=== PATIENT | male | born 1955 | race Caucasian/White ===

== ENCOUNTER 2016-10-16 19:29 | Inpatient (IN) | payer OTHER ==
[~2016-10-16] VITALS: Ht 185.4 cm; Wt 110.7 kg
--- NOTE | 2016-10-16 19:34 | ED AMS/SEIZURE/WEAK/DIZZY ---
History of Present Illness General Chief Complaint: Altered Mental Status Stated Complaint: AMS Source: patient, family, EMS Exam Limitations: clinical condition Vital Signs & Intake/Output Vital Signs & Intake/Output Vital Signs Date Time Temp Pulse Resp B/P Pulse O2 O2 Flow FiO2 Ox Delivery Rate 10/16 2228 99.6 90 18 151/78 96 Room Air Room Air 10/16 2150 98.3 90 18 149/76 99 Room Air 10/16 2005 97 Room Air Room Air 10/16 2000 89 18 159/77 97 Room Air Room Air 10/16 1946 97.4 90 18 197/97 95 Room Air Room Air Allergies Coded Allergies: No Known Allergies (10/16/16) Reconcile Medications Aspirin (Ecotrin*) 81 MG TABLET.DR 1 TAB PO DAILY BLOOD THINNER (Reported) Atorvastatin Calcium 10 MG TABLET 1 TAB PO DAILY HLP (Reported) Insulin Glargine,Hum.rec.anlog (Lantus Solostar) 100 UNIT/ML (3 ML) INSULN.PEN 50 UNIT SC QPM DM (Reported) Insulin Lispro (Humalog) 100 UNIT/ML VIAL 20 U SC Q8 DM (Reported) Metoprolol Tartrate 50 MG TABLET 1 TAB PO BID HTN (Reported) Ramipril 2.5 MG CAPSULE 1 CAP PO DAILY HTN (Reported) Warfarin Sodium (Coumadin) (Unknown Strength) TABLET (Unknown Dose) PO AD BLOOD THINNER (Reported) Triage Nurses Notes Reviewed? yes Onset: unknown Duration: hour(s): Timing: recent history Injury Environment: home Severity: moderate Modifying Factors: Improves With: rest. Associated Symptoms: confusion HPI: 60-year-old gentleman history of an aortic valve replacement on Coumadin, presents with confusion. Per the medics his family have been trying to reach him by cell phone throughout the day. He did not respond. However in the evening he sent a text that was nonsensical. They called 911. They found him confused with difficulty ambulating. Upon further questioning with the family the last normal text was around noon. There is no history of trauma. Past History Travel History Traveled to [place] past 21 day No Medical History Any Pertinent Medical History? see below for history Cardiovascular: aortic valve replacement Surgical History Surgical History: aortic valve replacement Family History Hx Contributory? No Review of Systems Review of Systems Constitutional: Reports: no symptoms. EENTM: Reports: no symptoms. Respiratory: Reports: no symptoms. Cardiovascular: Reports: no symptoms. GI: Reports: no symptoms. Genitourinary: Reports: no symptoms. Musculoskeletal: Reports: no symptoms. Skin: Reports: no symptoms. Neurological/Psychological: Reports: no symptoms. Hematologic/Endocrine: Reports: no symptoms. Immunologic/Allergic: Reports: no symptoms. All Other Systems: Reviewed and Negative Physical Exam Physical Exam General Appearance: well developed/nourished, mild distress Head: atraumatic, normal appearance Eyes: Bilateral: normal appearance, PERRL, other (left-sided neglect). Ears, Nose, Throat: normal pharynx Neck: normal inspection, supple, full range of motion Respiratory: normal breath sounds Cardiovascular: regular rate/rhythm Gastrointestinal: normal bowel sounds, soft, non-tender, no organomegaly Back: normal inspection Extremities: normal range of motion Neurologic/Psych: alert and oriented x 3 but with sluggish responsiveness. the extraocular movements are largely intact but they do not cross the midline from right to left. He also appears to have a left-sided neglect. He does not spontaneously move his left arm. However when I asked to squeeze he is able to squeeze his hand but with slightly diminished strength 4 out of 5. Right arm is normal 5 out of 5. Bilateral lower extremities are symmetric and normal. Reflexes: 0: bicep (L), knee (L). 1+: bicep (R), knee (R). Skin: intact, normal color, warm/dry Comments: pt failed swallow evaluation Core Measures ACS in differential dx? No CVA/TIA Diagnosis: Yes NIH Stroke Scale: Total 4 Neurological S/S of CVA: Acute Confusion Severe Sepsis Present: No Septic Shock Present: No Progress Differential Diagnosis: arrythmia, benign positional vertigo, CVA/stroke, electrolyte imbalance Plan of Care: Orders Procedure Date/time Status Nothing by Mouth 10/17 B Active [id number] DOPPLER 10/17 599 Active PROTHROMBIN TIME 10/17 599 Active WESTERGREN SED RATE 10/17 599 Active CBC WITHOUT DIFFERENTIAL 10/17 599 Active BASIC ELECTROLYTES PLUS BUN&CR 10/17 599 Active Add-on Test (ER Only) 10/16 230 Active RAPID PLASMA REAGIN 10/16 2221 Active ECHOCARDIOGRAM 10/16 2219 Active Pathway - chart 10/16 2200 Active House Staff 10/16 2200 Active Code Status 10/16 2200 Active Saline Lock 10/16 2044 Active Misc Message 10/16 2044 Active ED Holding Orders 10/16 2044 Active Admit to inpatient 10/16 2044 Active Vital Signs 10/16 2044 Active Code Status 10/16 2044 Complete Patient Data 10/16 2040 Active Intake & Output 10/16 2004 Active CARBON MONOXIDE LEVEL (GEN) 10/16 1956 Active ARTERIAL BLOOD GAS (GEN) 10/16 1956 Active THYROID STIMULATING HORMONE 10/16 1934 Complete FREE T4 10/16 1934 Complete ETHANOL 10/16 1934 Complete URINE DRUG SCREEN FOR ER ONLY 10/16 1931 Complete URINALYSIS 10/16 1931 Complete PARTIAL THROMBOPLASTIN TIME 10/16 1930 Complete PROTHROMBIN TIME 10/16 1930 Complete HEPATIC FUNCTION PANEL 10/16 1930 Complete CBC WITHOUT DIFFERENTIAL 10/16 1930 Complete BASIC METABOLIC PANEL 10/16 1930 Complete EKG 10/16 1930 Active PT Evaluate & Treat 10/16 UNK Active VTE Mechanical Prophylaxis 10/16 UNK Active Vital Signs 10/16 UNK Active Precautions 10/16 UNK Active NIH Stroke Scale 10/16 UNK Active [place] Coma Scale 10/16 UNK Active MRI-HEAD W/O JO 10/16 UNK Active Current Medications Sig/Suzan Start time Last Medication Dose Stop Time Status Admin Aspirin 325 MG ONCE ONE 10/16 2029 CAN (Aspirin) 10/16 2030 Laboratory Tests 10/16/16 222: TSH Cancelled, Free T4 Cancelled, CBC w Diff Cancelled, WBC Cancelled, RBC Cancelled, Hgb Cancelled, Hct Cancelled, MCV Cancelled, MCH Cancelled, RDW Cancelled, Plt Count Cancelled, MPV Cancelled, PUBS MCHC Cancelled 10/16/16 2015: pH 7.46 H, pCO2 32 L, pO2 87, HCO3 22, ABG O2 Sat (Measured) 96.0, P-50 (Temp Corrected) Y, Oxyhemoglobin Pending, Carboxyhemoglobin 1.0 L, Methemoglobin Pending, Calc Total Hemoglobin 14, Oxygen Content Pending, O2 Concentration % RM /AIR, Temperature 97.0, O2 Delivery Method RA, Phlebotomy Draw Site RIGHT RADIAL 10/16/161953: Urine Opiates Screen < 100.00, Methadone Screen < 40, Barbiturate Screen < 60, Ur Phencyclidine Scrn < 6.00, Amphetamines Screen < 100, U Benzodiazepines Scrn < 85, Urine Cocaine Screen < 50, Urine Cannabis Screen > 80.00 H, Urine Color YEL, Urine Clarity CLEAR, Urine pH 6.0, Ur Specific [place] 1.025, Urine Protein TRACE H, Urine Ketones 40 H, Urine Nitrite NEG, Urine Bilirubin NEG, Urine Urobilinogen 0.2, Ur Leukocyte Esterase NEG, Ur Microscopic SEDIMENT EXAMINED, Urine RBC 1-3, Urine WBC RARE, Ur Epithelial Cells FEW, Urine Hemoglobin TRACE- LYSED H, Urine Glucose >=1000 H 10/16/161934: Anion Gap 13, Estimated GFR > 60, BUN/Creatinine Ratio 18.3, Glucose 343 H, Calcium 9.5, Total Bilirubin 0.9, Direct Bilirubin 0.6 H, AST 31, ALT 40, Alkaline Phosphatase 116, Total Protein 7.6, Albumin 4.4, TSH 2.010, Free T4 1.92 H, PT 12.4, INR 1.18 H, APTT 30, CBC w Diff NO MAN DIFF REQ, RBC 4.19 L, MCV 97.3 H, MCH 33.4 H, RDW 13.1, MPV 7.6, Gran % 71.4, Lymphocytes % 18.0 L, Monocytes % 9.2, Eosinophils % 1.1, Basophils % 0.3, Absolute Granulocytes 6.5, Absolute Lymphocytes 1.6, Absolute Monocytes 0.8 H, Absolute Eosinophils 0.1, Absolute Basophils 0, PUBS MCHC 34.3, RPR Titer/FTA Pending, Serum Alcohol < 10.0 10/16/161931: Serum Alcohol Cancelled Diagnostic Imaging: Viewed by Me: Radiology Read, CT Scan. Discussed w/RAD: Radiology Read, CT Scan. Radiology Impression: head CT - right temporal lobe ischemic area, full report blow. CXR Impression: no acute abnormality, no infiltrates, normal size heart, normal mediastinum, hypoexpanded Initial ED EKG: normal axis, normal intervals, normal p-waves, normal QRS complex, normal sinus rhythm Comments: PATIENT: CITLALI VALLADARES PRESENT AGE: 57 PATIENT ACCOUNT NO: [id number] : [birth year] LOCATION: [facility] ORDERING PHYSICIAN: AKIRA HILL MD SERVICE DATE: 10/16/16 EXAM TYPE: CAT - CT CERV SPINE WO IV CONTRAST; CT HEAD WO IV CONTRAST EXAMINATION: CT HEAD WITHOUT CONTRAST CT CERVICAL SPINE WITHOUT CONTRAST. CLINICAL INFORMATION: Mental status change COMPARISON: None TECHNIQUE: Contiguous axial imaging was performed from the vertex to the upper thorax without intravenous administration of contrast. DLP: 1533.95 mGy-cm FINDINGS: HEAD: There is no acute intracranial hemorrhage. There is loss of chandler-white matter differentiation in the right temporal lobe, better seen on axial image 15/32 of series 2. A 10 mm old lacunar infarct also seen in the same region. There is no midline shift or sign of transtentorial herniation. No extra-axial fluid collection. The ventricles are normal in size. The osseous structures and soft tissues are normal. The mastoid air cells and visualized portions of the paranasal sinuses are well aerated. CERVICAL SPINE: Presence of motion artifact limits evaluation of this exam. The vertebral body height and alignment of the cervical spine are within normal limits. The C1-C2, craniocervical and cervicothoracic anastomosis are unremarkable. There is narrowing of C5-C6, C6-C7 and C7-T1 intervertebral disc spaces. The posterior elements are intact. Degenerative changes of uncovertebral joints also seen. There is no acute fracture or dislocation of cervical spine. The paraspinal soft tissue and the visualized lung apices are unremarkable. IMPRESSION: 1. Loss of chandler-white matter differentiation in the right temporal lobe, suggests acute ischemia/stroke in the right MCA territory. There is no acute intracranial hemorrhage. No midline shift. 2. Degenerative disc disease of lower cervical spine. No acute cervical spine fracture or dislocation. Findings were discussed with Dr. Akira Hill at 758 on 10/16/2016 by myself. DICTATED BY: HUY LONGO MD DATE/TIME DICTATED:10/16/161953 LUSTER REPAIRER:BRENDA DATE/TIME TRANSCRIBED:10/16/161953 CONFIDENTIAL, DO NOT COPY WITHOUT APPROPRIATE AUTHORIZATION. <Electronically signed in Other Vendor System> SIGNED BY: HUY LONGO MD 10/16/162010 Departure Departure Disposition: STILL A PATIENT Condition: Stable Clinical Impression Primary Impression: CVA (cerebral vascular accident) Departure Forms: Customer Survey General Discharge Information Comments 10/16/16, 21:00.... discussed with patient's family.... they are uncertain when his symptoms began. ...discussed with radiology who conveyed head ct results... discussed with neurology who affirms plan for aspirin... pt to be admitted to [facility]. discussed with neuro who will see patient in the AM. Admission Note Spoke With: CAMMIE MARTIN,[facility] Documentation of Exam: Documentation of any treatments & extenuating circumstances including Concerns Regarding Discharge (functional status, medication knowledge or non-compliance, living conditions, etc.) that warrant an admission rather than observation: pt with ischemic stroke, failed swallow evaluation, uncertain time when it began. Pt merits admission, neuro evaluation. discussed with neurology and radiology. Critical Care Note Critical Care Note Critical Care Time: 30-74 min
[2016-10-16] MEDS ORDERED: COUMADIN1 M1 PO (19:41)
--- NOTE | 2016-10-16 19:46 | NUR ---
57 YEAR OLD MALE BIBA FROM HOME C/O AMS. PT NOTED TO HAVE LEFT SIDED DEFICITS, DR. KAY TO BEDSIDE FOR EVAL. WHEN ASKED THIS NURSE ASKED PT IS HE HAD A HEADACHE PT RESPONDED YES. PT DIRECTLY TO CAT SCAN.
[2016-10-16 19:47] LABS: ABSOLUTE BASOPHIL COUNT 0 /CUMM (0.0-0.2); ABSOLUTE EOSINOPHIL COUNT 0.1 /CUMM (0.0-0.7); ABSOLUTE GRANULOCYTE CT 6.5 /CUMM (1.4-6.5); ABSOLUTE LYMPH COUNT 1.6 /CUMM (1.2-3.4); ABSOLUTE MONOCYTE COUNT 0.8 /CUMM (0.10-0.60); BASOPHIL % 0.3 % (0.0-2.0); EOSINOPHIL % 1.1 % (0-5); GRANULOCYTE % 71.4 % (42.2-75.2); HEMATOCRIT 40.8 % (42-52); MEAN CORPUSCULAR HGB 33.4 PG (27.0-31.0); MEAN CORPUSCULAR HGB CONC 34.3 G/DL (33.0-37.0); MEAN CORPUSCULAR VOLUME 97.3 FL (80.0-94.0); MEAN PLATELET VOLUME 7.6 FL (7.4-10.4); PLATELET COUNT 223 /CUMM (130-400); RBC DISTRIBUTION WIDTH 13.1 % (11.5-14.5); RED BLOOD CELL CT 4.19 /CUMM (4.70-6.10)
[2016-10-16 19:58] LABS: PT 12.4 SEC (9.4-12.5); PTT 30 SEC (25-37)
--- NOTE | 2016-10-16 20:04 | NUR ---
PT APPEARS NSR ON MONITOR. DELEON CATHETER OBTAINED AND SENT. EKG IN PROGRESS.
--- NOTE | 2016-10-16 20:05 | NUR ---
UNABLE TO VERIFY MEDICATIONS OR PAST MEDICAL HISTORY WITH PT. PT ORIENTED TO PERSON AND PLACE (STEFANY GROSSMAN.)
[2016-10-16] MEDS ORDERED: ASPIRIN EC81 M1 PO (20:10)
--- NOTE | 2016-10-16 20:11 | CT SCAN REPORT ---
EXAMINATION: CT HEAD WITHOUT CONTRAST CT CERVICAL SPINE WITHOUT CONTRAST. CLINICAL INFORMATION: Mental status change COMPARISON: None TECHNIQUE: Contiguous axial imaging was performed from the vertex to the upper thorax without intravenous administration of contrast. DLP: 1533.95 mGy-cm FINDINGS: HEAD: There is no acute intracranial hemorrhage. There is loss of chandler-white matter differentiation in the right temporal lobe, better seen on axial image 15/32 of series 2. A 10 mm old lacunar infarct also seen in the same region. There is no midline shift or sign of transtentorial herniation. No extra-axial fluid collection. The ventricles are normal in size. The osseous structures and soft tissues are normal. The mastoid air cells and visualized portions of the paranasal sinuses are well aerated. CERVICAL SPINE: Presence of motion artifact limits evaluation of this exam. The vertebral body height and alignment of the cervical spine are within normal limits. The C1-C2, craniocervical and cervicothoracic anastomosis are unremarkable. There is narrowing of C5-C6, C6-C7 and C7-T1 intervertebral disc spaces. The posterior elements are intact. Degenerative changes of uncovertebral joints also seen. There is no acute fracture or dislocation of cervical spine. The paraspinal soft tissue and the visualized lung apices are unremarkable. IMPRESSION: 1. Loss of chandler-white matter differentiation in the right temporal lobe, suggests acute ischemia/stroke in the right MCA territory. There is no acute intracranial hemorrhage. No midline shift. 2. Degenerative disc disease of lower cervical spine. No acute cervical spine fracture or dislocation. Findings were discussed with Dr. Akira Hill at 758 on 10/16/2016 by myself.
--- NOTE | 2016-10-16 20:33 | RADIOLOGY REPORT ---
EXAMINATION: PORTABLE CHEST 1 VIEW CLINICAL INFORMATION: Dyspnea. COMPARISON: No recent pertinent prior studies are available for comparison. TECHNIQUE: Portable frontal view of the chest was obtained. FINDINGS: The lungs are hypoexpanded with mild basilar markings more suggestive of atelectasis. No focal infiltrate, effusion, edema, or pneumothorax. Cardiac and mediastinal silhouettes are within normal limits for size. Patient is status post sternotomy. No acute bony abnormality seen. IMPRESSION: Hypoexpanded with mild basilar atelectasis.
--- NOTE | 2016-10-16 20:34 | NUR ---
PT SON NATALIE CALLED AND CONFIRMED PT LIVES IN [place], [place] AND LIVES INDEPENDENTLY AT [facility]. PT SON CAN BE REACHED AT [phone].
--- NOTE | 2016-10-16 20:45 | NUR ---
PT UNABLE TO SWALLOW WATER WITHOUT COUGHING. DR. KAY UPDATED, NO PO ASPIRIN AT THIS TIME.
--- NOTE | 2016-10-16 20:51 | History & Physical ---
TAWNY MARTIN,[facility] 10/16/162050: General Information and HPI MD Statement: I have seen and personally examined CITLALI VALLADARES and documented this H&P. The patient is a 60 year old M who presented with a patient stated chief complaint of Altered Mental Status Source of Information: patient, family, old records Exam Limitations: clinical condition History of Present Illness: Mr Valladares is a 60-year-old gentleman with past medical history of aortic valve replacement in January 2016 who is currently on chronic Warfarin therapy (7.5 mg daily) ,CABG, hypertension and hyperlipidemia who was brought in by emergency medical services in the early afternoon due to decreased mentation and having difficulty with word articulation and generalized confusion. Report from the patient's states that his symptoms may have began this afternoon at approximately 12 PM. She received a few texts that did not make sense and she subsequently called the police to check on the patient. Police subsequently called EMS and patient was brought into the emergency department. On admission the patient complains of mild headache. Headache is rated a 4 out of 10. Patient states that his headache is more prevalent on the right-hand side. Does not report any vision changes. Patient states his headache has been present for last few hours. He is unsure of the reason he has been brought to the emergency department. He does state that he had one episode of emesis prior to coming to the emergency department. Patient does have recreational marijuana use. He states he last used marijuana a few hours prior to coming to the emergency. He denies any fever, chills, chest pain or chest or chest pressure. For additional information his Erica can be reached on [phone] or Allergies/Medications Allergies: Coded Allergies: No Known Allergies (10/16/16) Home Med list Aspirin (Ecotrin*) 81 MG TABLET.DR 1 TAB PO DAILY BLOOD THINNER (Reported) Atorvastatin Calcium 10 MG TABLET 1 TAB PO DAILY HLP (Reported) Insulin Glargine,Hum.rec.anlog (Lantus Solostar) 100 UNIT/ML (3 ML) INSULN.PEN 50 UNIT SC QPM DM (Reported) Insulin Lispro (Humalog) 100 UNIT/ML VIAL 20 U SC Q8 DM (Reported) Metoprolol Tartrate 50 MG TABLET 1 TAB PO BID HTN (Reported) Ramipril 2.5 MG CAPSULE 1 CAP PO DAILY HTN (Reported) Warfarin Sodium (Coumadin) (Unknown Strength) TABLET (Unknown Dose) PO AD BLOOD THINNER (Reported) Compliance With Home Meds: GOOD Past History Travel History Traveled to [place] past 21 day No Medical History Cardiovascular: AORTIC VALVE REPLACEMENT Endocrine: diabetes Surgical History Surgical History: Valve Replacement Past Family/Social History Psychosocial History Where do you live? Home Who Do You Live With? spouse Services at Home: None Primary Language: Beninese Smoking Status: Never Smoked ETOH Use: denies use Illicit Drug Use: marijuana Functional Ability ADLs Independent: dressing, eating, toileting, bathing. Ambulation: independent IADLs Independent: shopping, housework, finances, food prep, telephone, transportation , medication admin. Review of Systems Review of Systems Constitutional: Denies: chills, diaphoresis, fever, malaise, weakness. Cardiovascular: Denies: chest pain, edema, orthopena, palpitations. Respiratory: Denies: cough, hemoptysis, orthopnea, short of breath, sputum production. GI: Reports: nausea, vomiting. Denies: diarrhea, distention, bowel incontinence, melena. Genitourinary: Denies: dysuria, frequency, hematuria, hesitation. Musculoskeletal: Denies: back pain, gout, joint pain, joint swelling. Exam & Diagnostic Data Last 24 Hrs of Vital Signs/I&O Vital Signs Date Time Temp Pulse Resp B/P Pulse O2 O2 Flow FiO2 Ox Delivery Rate 10/17 0000 99.2 98 20 150/70 97 Room Air 10/169 99.6 90 18 151/78 96 Room Air Room Air 10/16 2151 98.3 90 18 149/76 99 Room Air 10/16 2005 97 Room Air Room Air 10/16 2001 89 18 159/77 97 Room Air Room Air 10/16 1946 97.4 90 18 197/97 95 Room Air Room Air Intake & Output 10/17 0800 10/17 0000 10/16 1600 Intake Total Output Total 700 Balance -700 Output, Urine 700 Patient 111.13 kg Weight Physical Exam General Appearance Alert, Oriented X3, Cooperative, No Acute Distress, Patient igonored/neglected care provider on left. He was only able to draw half a clock. HEENT Mucous membranes Dry Neck No JVD Lymphatic Cervical nl Cardiovascular Normal S1, Normal S2 Lungs Expiratory Rhonchi Abdomen Normal Bowel Sounds, Soft, No Tenderness Neurological Sensation Intact, Cranial Nerves 3-12 NL, Reflexes 2+, Strength LUE : 4/5 LLE: 4/5 RUE:5/5 RLE: 5/5, Slurred Speech Extremities No Edema, Babinski + Right Last 24 Hrs of Labs/Norbert: Laboratory Tests 10/16/162220: TSH Cancelled, Free T4 Cancelled, CBC w Diff Cancelled, WBC Cancelled, RBC Cancelled, Hgb Cancelled, Hct Cancelled, MCV Cancelled, MCH Cancelled, RDW Cancelled, Plt Count Cancelled, MPV Cancelled, PUBS MCHC Cancelled 10/16/162014: pH 7.46 H, pCO2 32 L, pO2 87, HCO3 22, ABG O2 Sat (Measured) 96.0, P-50 (Temp Corrected) Y, Oxyhemoglobin Pending, Carboxyhemoglobin 1.0 L, Methemoglobin Pending, Calc Total Hemoglobin 14, Oxygen Content Pending, O2 Concentration % RM /AIR, Temperature 97.0, O2 Delivery Method RA, Phlebotomy Draw Site RIGHT RADIAL 10/16/161953: Urine Opiates Screen < 100.00, Methadone Screen < 40, Barbiturate Screen < 60, Ur Phencyclidine Scrn < 6.00, Amphetamines Screen < 100, U Benzodiazepines Scrn < 85, Urine Cocaine Screen < 50, Urine Cannabis Screen > 80.00 H, Urine Color YEL, Urine Clarity CLEAR, Urine pH 6.0, Ur Specific Kennard 1.025, Urine Protein TRACE H, Urine Ketones 40 H, Urine Nitrite NEG, Urine Bilirubin NEG, Urine Urobilinogen 0.2, Ur Leukocyte Esterase NEG, Ur Microscopic SEDIMENT EXAMINED, Urine RBC 1-3, Urine WBC RARE, Ur Epithelial Cells FEW, Urine Hemoglobin TRACE- LYSED H, Urine Glucose >=1000 H 10/16/161934: Anion Gap 13, Estimated GFR > 60, BUN/Creatinine Ratio 18.3, Glucose 343 H, Calcium 9.5, Total Bilirubin 0.9, Direct Bilirubin 0.6 H, AST 31, ALT 40, Alkaline Phosphatase 116, Total Protein 7.6, Albumin 4.4, TSH 2.010, Free T4 1.92 H, PT 12.4, INR 1.18 H, APTT 30, CBC w Diff NO MAN DIFF REQ, RBC 4.19 L, MCV 97.3 H, MCH 33.4 H, RDW 13.1, MPV 7.6, Gran % 71.4, Lymphocytes % 18.0 L, Monocytes % 9.2, Eosinophils % 1.1, Basophils % 0.3, Absolute Granulocytes 6.5, Absolute Lymphocytes 1.6, Absolute Monocytes 0.8 H, Absolute Eosinophils 0.1, Absolute Basophils 0, PUBS MCHC 34.3, RPR Titer/FTA Pending, Serum Alcohol < 10.0 10/16/161931: Serum Alcohol Cancelled Diagnostic Data EKG Results EKG showed normal sinus rate and rhythm, normal axis, no acute ST-T segment change, rates 90 Assessment/Plan Assessment: Mr Valladares a 60-year-old gentleman with various comorbidities was presented with a right temporal lobe infarct. Noncompliance with anticoagulation may have resulted in an embolic event secondary to a aortic fibrillation. #Acute ischemic stroke likely in the setting of failed Coumadin therapy due to a subtherapeutic INR. May consider additional imaging to assess stroke progression. Admit the patient to Telemetry for further monitoring. Continue neuro checks. Continue patient on aspirin. Allow permissive hypertension Should patient's blood pressure exceeded 200 mmHg systolic consider labetalol. Follow neurological recommendations a.m. Echocardio in a.m. Carotid ultrasound rule out stenosis. Begin the patient on a high-dose statin. #Aortic valve replacement For now we will hold Coumadin. Obtain records from previous surgery report where the aortic valve was replaced Continue to monitor INR on a daily basis. Cardiology/Neurology consult in a.m. for further recommendations on AC. #History of diabetes mellitus Continue Accu-Cheks every 6. Order hemoglobin A1c for penitentiary glycemic control #Diet NPO until swallow eval in a.m. #DVT prophylaxis ALPS #Code full code As Ranked By This Provider Problem List: 1. CVA (cerebral vascular accident) Core Measures/Miscellaneous Acute Coronary Syndrome ACS Diagnosis: No Cerebrovascular Accident CVA/TIA Diagnosis: Yes Bedside Swallow Eval Done: Yes Congestive Heart Failure CHF Diagnosis: No Venous Thromboembolism VTE Risk Factors: Age > 40 VTE Prophylaxis Ordered Inpt: Mechanical (ALPS/TEDS) No Mech VTE prophylaxis d/t: No contraindications No VTE Pharm Prophylaxis d/t: Medical contraindication VTE Diagnosis: No VTE Type: NONE VTE Confirmed by (Test): NONE Severe Sepsis Severe Sepsis Present: No Septic Shock Septic Shock Present: No Miscellaneous Documentation Attending Case Discussed With: RANJANA BONDS MD Primary Care Physician: PATIENT HAS NO PRIMARY CARE DR Patient sees these Specialists NA Level of Patient Care: Telemetry ZOE BONDS MD 10/16/16 2342: Attending MD Review Statement Attending Statement Attending MD Statement: examined this patient, discuss w/resident/PA/SURVEY ANALYST, agreed w/resident/PA/SURVEY ANALYST Attending Assessment/Plan: 60 yo M with h/o CAD s/p stent, recent AVR and CABG (2015) on coumadin, T2DM, HTN, who continues to smoke 'pod' is brought in for evaluation of AMS. Per ER records and as told to my residents by patients partner, patient was doing well until 1 pm. Partner was concerned few hours later as she was receiving unclear texts from him. She called 911. Patient is awake, alert, speech is slow and at times slurred, he is able to understand our questions. Tongue and uvula midline. Neck suppler. He has a left neglect, no nystagmus, pronator drift to left, Power 3-4/5 left upper and lower extremity. Reflexes 2+. Babinksi unequivocal left side. Vitals stable except for permissive hypertension. EKG: SR. CT head shows right MCA territory stroke. Tele admit for acute ischemic stroke. Neurochecks, NPO (failed bedside swallow), obtain official swallow eval, permissive hypertension, aspirin, high dose statin , check lipid panel, TSH, free T4, HbA1c. Echo, rule out ACS, carotid doppler, Cardio and Neuro consult. PT/OT and speech therapy in AM. Recent AVR and subtherapeutic INR. Hold coumadin or heparin for now given risk of hemorrhagic transformation. Obtain records from [facility]. Discuss with cardio and neuro regarding eventual need for anticoagulation. DVT ppx Alps. Full code. STACI SAEED 10/17/16 0035: General Information and HPI MD Statement: I have seen and personally examined CITLALI VALLADARES and documented this H&P. The patient is a 60 year old M who presented with a patient stated chief complaint of []. Resident Review Statement Resident Statement: examined this patient, discussed with intelligence intern, agreed with intelligence intern, discussed with family, reviewed EMR data (avail), discussed with nursing , discussed with case mgmt, reviewed images, amended to note Other Findings: 60-year-old gentleman with past medical history of take a stenosis status post aortic valve replacement in January 2016 AC on warfarin and CABG at the same time, coronary artery disease a status post stent placement 7 years ago, hypertension, hyperlipidemia, diabetes was brought in by ambulance for altered mental status. Patient lives in [place] and works in [place], most of the days. Patient is not able to recall the details of the incidence majority of the history was taken from his partne during a phone interview. As she told me, the last time the exchange few normal [place] was around 1 PM yesterday. He hours later she received few unclear texts from him. She tried to call him and takes infrequently but patient did not respond, first responders were called and they found the patient confused and shaky and weak on the floor for unknown period of time. Lifetime nonsmoker, smokes pot frequently the last time he smoked was few hours before admission; socially drinks alcohol Lives in [place] with his partner; independent in taking care of himself Family history: Not obtainable Review of system: She complains shakiness; he denies any chest pain, palpitation and weakness. Vital signs: Show the blood pressure 197/97 mmHg, pulse rate 90, respiratory rate 18 temperature within normal limits. Physical exam: Not in acute distress other to person and time but not to place, he also does not have any insight about his current problem. Head and neck: Slight droopiness of left eye, pupils equal reactive to light symmetric negative: Symmetric nasolabial fold, smile symmetric, no JVD, mucous membranes are dry, uvula and tongue in midline; cardiovascular exam: Systolic member second right intercostal space, S1-S2, lungs are clear. Neuro exam: Patient is having difficulty following commands neuro exam is to some extent limited; Cranial nerves: Grossly intact, left hemianopia, negative nystagmus, motor sensory exam is within normal limits on the right upper and right lower extremities, motor/sensory exam showed 3/5 force in proximal and distal left upper extremity and 4 out of 5 force in proximal and distal left lower extremity ; Reflexes are 2+ in upper and lower extremities (triceps brachial and Achilles tendon, knee jerk); reflexes are slightly increased on the left upper and lower extremities. Babinski positive(faning and upward) on the left side and normal downwards on the right side. Upon questioning patient is neglecting the interviewer who is a standing in his left visual field, Clock- drawing test: Patient is not the left half of the clock. Does not have any expressive or receptive aphasia. Pertinent data WBC 9 no left shift no bandemia, hemoglobin 14 hematocrit 40.8 platelet count 223; sodium 137 potassium 4.4 troponin negative glucose 343, INR 1.18, U tox positive for cannabis EKG showed normal sinus rate and rhythm, normal axis, no acute ST-T segment change, rates 90 CT scan of the head and neck without contrast: Acute ischemia/stroke in right MCA territory, no intracranial hemorrhage Assessment and plan 60-year-old right-handed gentleman was admitted for acute right MCA stroke. List of problems #1 acute ischemic stroke: History of coronary artery disease and atherosclerosis. Patient has a prolonged history of hypertension. Aortic valve replacement is soft for PT INR. Hypoglycemia and drugs are in the list of differential diagnosis. * Admit to telemetry for close observation * Neuro check every 4 * Failed bedside clinical eval-keep the patient nothing by mouth * D5 half saline 100 mL per hour * Continue low-dose aspirin * Started patient on high-dose Lipitor 80 mg by mouth daily * Official swallow eval in the a.m. * PT * Avoids aggressive treatment for hypertension; patient needs permissive hypertension to assure a good cerebral perfusion, keep blood pressure below 160/ 90 * His home meds antihypertensive medication (metoprolol 50 mg by mouth twice a day and ramipril 2.5 mg by mouth daily); * Check vital signs/blood pressure every 4 hours * The blood pressure was higher than 160-170/90, his labetalol 10 mg IV push over 1-2 minutes and reassess the patient's * Neurology was informed by emergency room followed 1 neurology recommendation in the a.m. * Follow echo * Follow carotid ultrasound of the neck * Thyroid panel and lipid panel results, ESR, RPR, HbA1C * #2 aortic valve replacement with subtrochanteric INR * Hold Coumadin- per cardiology since is not clear that the patient has metal versus bioprosthetic valve and considering the extent of the ischemic stroke and the risk of hemorrhagic transformation the matters should be discussed with the neurology for now we are holding Coumadin; check the INR in the a.m., discuss restarting anticoagulation with neurology * recommendation Dr. Branch was called by admitting team #3 history of diabetes elevated blood sugar * Follow HbA1c * Keep nothing by mouth; D5 half saline * Insulin for nothing by mouth patient every 6 * Accu-Chek every 6 Alps for DVT prophylaxis Patient is full code-needs to be reassessed Mild pain-pain management and IV Tylenol- pathway avoids hypnotic and night and narcotics
--- NOTE | 2016-10-16 21:00 | NUR ---
PT SIGNIFICANT OTHER HIREN CALLED AND CAN REACHED AT [phone] HOME OR [phone] [facility]. SHE REPORTS LAST NORMAL TEXT WAS AROUND [phone] BUT THAT IS NOT UNCOMMON FOR HIM NOT TO TEXT HER WHILE HE IS WORKING. SHE REPORTS THAT THE FIRST ABNORMAL TEXT SHE RECIEVED FROM HIM WAS AT 1815 AND AT 1832 SHE CALLED THE POLICE TO CHECK ON HIM. THE POLICE TEXTED HER AT 1858 THAT THEY CALLED EMS.
--- NOTE | 2016-10-16 21:12 | NUR ---
PT VOMITED LARGE AMOUNT OF YELLOW COLORED EMESIS. PER PT "IT CAME OUT OF NO WHERE I AM NOT NAUSEOUS." GOWN AND LINENS CHANGED. HOUSE STAFF AWARE. EMESIS BASIN IN HAND FOR PT.
--- NOTE | 2016-10-16 21:15 | NUR ---
HOUSE STAFF TO BEDSIDE FOR EVAL.
--- NOTE | 2016-10-16 21:45 | NUR ---
PT MEDICATED PER EMAR. PT ALERT AND ORIENTED TO PERSON. PT ABLE TO FOLLOW COMMANDS. PT SPEECH IS SLOW AND UNABLE TO SPEAK IN A COMPLETE SENTENCE BUT PT DOES MAKE STATEMENTS THAT HAVE BEEN VERIFIED BY FAMILY ON THE PHONE. LEFT SIDED WEAKNESS SLIGHTLY IMPROVED WITH HAND GRASPS AT THIS TIME.
[2016-10-16] MEDS ORDERED: ATORVASTATIN CA10 M1 PO (22:03)
[2016-10-16] MEDS ORDERED: RAMIPRIL2.5 M1 PO (22:04)
[2016-10-16] MEDS ORDERED: METOPROLOL TART50 M1 PO (22:05)
[2016-10-16] MEDS ORDERED: LANTUS SOL100 UNIT/1 SC (22:05)
[2016-10-16] MEDS ORDERED: HUMALOG100 UNIT/2 SC (22:06)
--- NOTE | 2016-10-16 22:52 | NUR ---
PT BED ASSIGNMENT 189-1
--- NOTE | 2016-10-16 23:25 | NUR ---
REPORT GIVEN TO DANYEL MCCLURE. STAFF ON FLOOR UNABLE TO TRANSPORT PT.
--- NOTE | 2016-10-16 23:52 | Admission Certification ---
Admission Certification Certification Statement - As attending physician, I certify that at the time of - admission, based on clinical presentation, severity of - symptoms, need for further diagnostic testing and - therapeutic interventions, and risk of adverse outcomes - without in-hospital treatment, in my clinical assessment, - this patient requires an acute hospital stay for a minimum - of two nights or longer. I have also considered psychsocial - factors such as support system, advanced age, financial - issues, cognitive issues, and failed out-patient treatments, - past re-admission history, safety of patient, and lack of - compliance as applicable. Specific rationale supporting this admission is: Acute ischemic stroke.
[2016-10-17] VITALS: BP 150/70
[2016-10-17 08:01] LABS: ABSOLUTE BASOPHIL COUNT 0 /CUMM (0.0-0.2); ABSOLUTE EOSINOPHIL COUNT 0 /CUMM (0.0-0.7); ABSOLUTE GRANULOCYTE CT 6.4 /CUMM (1.4-6.5); ABSOLUTE MONOCYTE COUNT 0.6 /CUMM (0.10-0.60); BASOPHIL % 0.2 % (0.0-2.0); EOSINOPHIL % 0.1 % (0-5); GRANULOCYTE % 79.7 % (42.2-75.2); HEMATOCRIT 40.5 % (42-52); MEAN CORPUSCULAR HGB 33.2 PG (27.0-31.0); MEAN CORPUSCULAR HGB CONC 34.1 G/DL (33.0-37.0); MEAN CORPUSCULAR VOLUME 97.4 FL (80.0-94.0); MEAN PLATELET VOLUME 8.4 FL (7.4-10.4); PLATELET COUNT 209 /CUMM (130-400); RBC DISTRIBUTION WIDTH 13.5 % (11.5-14.5); RED BLOOD CELL CT 4.16 /CUMM (4.70-6.10)
[2016-10-17 08:16] LABS: PT 13.1 SEC (9.4-12.5)
[2016-10-17 08:34] VITALS: BP 170/70
--- NOTE | 2016-10-17 08:52 | ULTRASOUND REPORT ---
EXAMINATION: US DUPLEX CAROTID AND VERTEBRAL CLINICAL INFORMATION: Stroke. Mental status change. COMPARISON: None TECHNIQUE: Real-time ultrasound and Doppler techniques (integrating B-mode 2D vascular images, Doppler spectral analysis and color flow Doppler imaging) were utilized to interrogate the extracranial carotid and vertebral arteries bilaterally. The degree of stenosis determined by criteria similar to NASCET. FINDINGS: RIGHT VESSELS - There is antegrade flow within the carotid and vertebral arteries. Mild intimal thickening along the wall of the common carotid artery. There is mild atherosclerotic plaque of the proximal ICA producing < 25% luminal narrowing as seen on the art scale images. No evidence of ulcerated plaque. Doppler derived peak systolic velocity measurements (cm/sec) were as follows: Distal CCA: 82 ICA: 82 (with end diastolic of 20) ECA: 143 Vertebral: 53 ICA/CCA ratio is 1.0 LEFT VESSELS - There is antegrade flow within the carotid and vertebral arteries. Mild intimal thickening along the wall the common carotid artery. There is mild atherosclerotic plaque of the carotid bulb producing < 25% luminal narrowing as seen on the art scale images. No evidence of ulcerated plaque. Doppler derived peak systolic velocity measurements (cm/sec) were as follows: Distal CCA: 116 ICA: 122 (with end diastolic of 33) ECA: 200 Vertebral: 58 ICA/CCA ratio is 1.05 IMPRESSION: Mild atherosclerosis of the carotid arteries. No evidence of a hemodynamically significant ICA stenosis.
--- NOTE | 2016-10-17 11:14 | PN- Housestaff ---
RACHAEL ENGEL 10/17/16 1114: Subjective Follow-up For: Right MCA ischemic stroke Prosthetic aortic valve Subjective: Patient is seen and examined. He remains very confused. He was a little agitated this morning and he was started on several scale. It's unclear if he was taking alcohol at home. His U tox is only significant for cannabis. Patient was awake and alert but unable to follow commands probably due to confusion. Review of Systems Constitutional: Reports: see HPI. Objective Last 24 Hrs of Vital Signs/I&O Vital Signs Date Time Temp Pulse Resp B/P Pulse O2 O2 Flow FiO2 Ox Delivery Rate 10/17 0941 89 10/17 0834 98.0 98 20 170/70 96 Room Air 10/17 0000 99.2 98 20 150/70 97 Room Air 10/16 2229 99.6 90 18 151/78 96 Room Air Room Air 10/16 2151 98.3 90 18 149/76 99 Room Air 10/16 2006 97 Room Air Room Air 10/16 2000 89 18 159/77 97 Room Air Room Air 10/16 1946 97.4 90 18 197/97 95 Room Air Room Air Intake & Output 10/17 1600 10/17 0800 10/17 0000 Intake Total 300 Output Total 1400 700 Balance -1100 -700 Intake, IV 300 Output, Urine 1400 700 Patient 111.13 kg Weight Physical Exam General Appearance: Alert, No Acute Distress, awake Skin: No Rashes, poor nail hygiene Cardiovascular: Normal S1, Normal S2, patient has a click probably due to prosthetic aortic valve Lungs: Clear to Auscultation, Normal Air Movement Abdomen: Normal Bowel Sounds, Soft, No Tenderness Current Medications: Current Medications Sig/Suzan Start time Last Medication Dose Route Stop Time Status Admin Acetaminophen 1,000 MG Q6P PRN 10/17 0100 AC IV Aspirin 81 MG DAILY 10/17 1000 AC 10/17 PO 1046 Aspirin 300 MG ONCE ONE 10/16 2114 DC 10/16 WY 10/16 2115 214 Aspirin 325 MG ONCE ONE 10/16 2030 CAN PO 10/16 2030 Atorvastatin Calcium 80 MG 1700 10/17 1700 AC PO Dextrose/Sodium 1,000 ML Q8H 10/17 0045 DC 10/17 Chloride IV 0100 Influenza Virus 0.5 ML ONCE ONE 10/17 929 DC 10/17 Vaccine IM 10/17 930 1046 Insulin Human Regular 0 Q6 10/17 0040 AC 10/17 SC 0600 Last 24 Hrs of Lab/Norbert Results Last 24 Hrs of Labs/Mics: Laboratory Tests 10/17/16 0630: Hemoglobin A1c Pending 10/17/1630: Anion Gap 15, Estimated GFR > 60, BUN/Creatinine Ratio 17.0, Triglycerides 62, Cholesterol 160, LDL Cholesterol, Calc 93, HDL Cholesterol 55, Cholesterol/HDL Ratio 3, PT 13.1 H, INR 1.25 H, CBC w Diff NO MAN DIFF REQ, RBC 4.16 L, MCV 97.4 H, MCH 33.2 H, RDW 13.5, MPV 8.4, Gran % 79.7 H, Lymphocytes % 13.0 L, Monocytes % 7.0, Eosinophils % 0.1, Basophils % 0.2, Absolute Granulocytes 6.4, Absolute Lymphocytes 1.0 L, Absolute Monocytes 0.6, Absolute Eosinophils 0, Absolute Basophils 0, PUBS MCHC 34.1 10/16/162220: TSH Cancelled, Free T4 Cancelled, CBC w Diff Cancelled, WBC Cancelled, RBC Cancelled, Hgb Cancelled, Hct Cancelled, MCV Cancelled, MCH Cancelled, RDW Cancelled, Plt Count Cancelled, MPV Cancelled, PUBS MCHC Cancelled 10/16/16 2015: pH 7.46 H, pCO2 32 L, pO2 87, HCO3 22, ABG O2 Sat (Measured) 96.0, P-50 (Temp Corrected) Y, Carboxyhemoglobin 1.0 L, Calc Total Hemoglobin 14, O2 Concentration % RM/AIR, Temperature 97.0, O2 Delivery Method RA, Phlebotomy Draw Site RIGHT RADIAL 10/16/161953: Urine Opiates Screen < 100.00, Methadone Screen < 40, Barbiturate Screen < 60, Ur Phencyclidine Scrn < 6.00, Amphetamines Screen < 100, U Benzodiazepines Scrn < 85, Urine Cocaine Screen < 50, Urine Cannabis Screen > 80.00 H, Urine Color YEL, Urine Clarity CLEAR, Urine pH 6.0, Ur Specific [place] 1.025, Urine Protein TRACE H, Urine Ketones 40 H, Urine Nitrite NEG, Urine Bilirubin NEG, Urine Urobilinogen 0.2, Ur Leukocyte Esterase NEG, Ur Microscopic SEDIMENT EXAMINED, Urine RBC 1-3, Urine WBC RARE, Ur Epithelial Cells FEW, Urine Hemoglobin TRACE- LYSED H, Urine Glucose >=1000 H 10/16/161934: Anion Gap 13, Estimated GFR > 60, BUN/Creatinine Ratio 18.3, Glucose 343 H, Calcium 9.5, Total Bilirubin 0.9, Direct Bilirubin 0.6 H, AST 31, ALT 40, Alkaline Phosphatase 116, Troponin I 0.01, Total Protein 7.6, Albumin 4.4, TSH 2.010, Free T4 1.92 H, PT 12.4, INR 1.18 H, APTT 30, CBC w Diff NO MAN DIFF REQ, RBC 4.19 L, MCV 97.3 H, MCH 33.4 H, RDW 13.1, MPV 7.6, Gran % 71.4, Lymphocytes % 18.0 L, Monocytes % 9.2, Eosinophils % 1.1, Basophils % 0.3, Absolute Granulocytes 6.5, Absolute Lymphocytes 1.6, Absolute Monocytes 0.8 H, Absolute Eosinophils 0.1, Absolute Basophils 0, PUBS MCHC 34.3, RPR Titer/FTA Pending, Serum Alcohol < 10.0 10/16/161931: Serum Alcohol Cancelled Assessment/Plan Assessment: Patient is 60-year-old male with h/o CAD s/p stent, recent AVR and CABG (2015) on coumadin, T2DM, HTN, who continues to smoke 'pod' is brought in for evaluation of AMS. Per ER records as told to them by the friend, patient was doing well yesterday to 1 PM until she started receiving unclear/blank texts from the patient. She called 911. In ER patient was observed to be awake and alert with a slurred and slow speech. He was found to have a left neglect and pronator drift to the left. Power 3-4/5 left upper and lower extremity. Reflexes 2+. Babinksi unequivocal left side. Patient was allowed permissive hypertension in ER EKG showed sinus rhythm CT head shows right MCA territory stroke. Acute ischemic stroke CAT scan significant for right MCA territory stroke. Patient failed bedside swallow yesterday he was kept nothing by mouth swallow eval from a.m. suggests regular diet and nectar thick liquids Serial neuro checks Patient was given a loading dose of aspirin and continued on aspirin and statin Patient has LDL of 89 and cholesterol of 160 Will obtain carotid Dopplers Neurology consult service has been requested will follow the recommendations PT/OT and speech therapy in AM. Avoid narcotic medications Prosthetic aortic valve Patient has a prosthetic aortic valve done in 2016 he's on Coumadin at home. His Coumadin is held as inpatient due to his risk of conversion to hemorrhagic stroke Will obtain records from [facility]. Cardiology consult service on board, will implement the recommendations regarding anticoagulation Irritation/irritability Patient seems very irritable this morning along with a confused state. Unsure of his alcohol intake at home Will start patient on ciwa scale and start Ativan when necessary if needed Hypertension Will hold his antihypertensive medication at this moment, and allow for permissive hypertension blood pressure goal to be between 160-180 Will hold ramipril and metoprolol Diabetes And started on NovoLog sliding scale Serial fingersticks We'll continue to monitor DVT prophylaxis Alps Patient is full code Problem List: 1. CVA (cerebral vascular accident) Pain Ratin Pain Location: Unknown patient unable to communicate properly Pain Goal: Pain 4 or less Pain Plan: Tylenol when necessary for pain Tomorrow's Labs & Rationales: CBC BP LONDON MONTEMAYOR MD 10/17/16 1725: Attending MD Review Statement Attending Statement Attending MD Statement: examined this patient, discuss w/resident/PA/FARM GENERAL MANAGER, agreed w/resident/PA/FARM GENERAL MANAGER, reviewed EMR data (avail) Attending Assessment/Plan: 60M PMH CAD s/p stent, recent AVR and CABG (2015) on coumadin, T2DM, HTN admitted with slurred speech, confusion, and left sided weakness in the setting of acute right MCA stroke. Patient still confused today and showing left sided weakness. Plan - Continue on telemetry - Follow cardiology and neurology recommendations - Will hold on heparin drip for 48 hours after stroke, unless recommended by neurology - Continue ASA and high dose statin - Swallow evaluation - PT/OT - DVT PPx
[2016-10-17 16:12] VITALS: BP 162/70
--- NOTE | 2016-10-17 17:07 | Event Note ---
Event Note Event Note: Neurology service was consulted in am for [place]. Ms was left with answering service. Dr. Ferguson was again contacted on [phone] Branch wants to start the patient on heprin drip due to prosthetic aortic valve. Dr. Branch wants to defer it to neurology regarding heparin drip. Dr. Branch thinks the current stroke is probably due to an emboli secondary to prosthetic aortic valve and he thinks that the patient would benefit from heparin drip. Awaiting neurology recommendation. The on-call team is aware of the situation.
--- NOTE | 2016-10-17 19:10 | Cons- Cardiology ---
General Information and HPI Consulting Request Date of Consult: 10/17/16 Requested By: CAMMIE MARTIN,RANJANA History of Present Illness: Jey is a 60 year old male with history of hypertension, dyslipidemia and bicuspid aortic valve. He underwent an aortic valve replacement in 2016 along with bypass grafts. He was started on coumadin but opted to discontinue this medication months ago. This patient was seen in the ER for evaluation of mental status changes and speech difficulties that began at about 12N yesterday. The patient complained of a mild headache at the time along with left sided weakness. He denies any chest discomfort, shortness of breath, lightheadedness or palpitations. He did have an episode of vomiting. Allergies/Medications Allergies: Coded Allergies: No Known Allergies (10/16/16) Home Med List: Aspirin (Ecotrin*) 81 MG TABLET.DR 1 TAB PO DAILY BLOOD THINNER (Reported) Atorvastatin Calcium 10 MG TABLET 1 TAB PO DAILY HLP (Reported) Insulin Glargine,Hum.rec.anlog (Lantus Solostar) 100 UNIT/ML (3 ML) INSULN.PEN 50 UNIT SC QPM DM (Reported) Insulin Lispro (Humalog) 100 UNIT/ML VIAL 20 U SC Q8 DM (Reported) Metoprolol Tartrate 50 MG TABLET 1 TAB PO BID HTN (Reported) Ramipril 2.5 MG CAPSULE 1 CAP PO DAILY HTN (Reported) Warfarin Sodium (Coumadin) (Unknown Strength) TABLET (Unknown Dose) PO AD BLOOD THINNER (Reported) Review of Systems Review of Systems: A twelve point review of systems is unremarkable. Past History Travel History Traveled to [place] past 21 day No Medical History Neurological: NONE EENT: NONE Cardiovascular: aortic valve replacement Respiratory: NONE Gastrointestinal: GI BLEED Hepatic: NONE Renal: NONE Musculoskeletal: NONE Psychiatric: NONE Endocrine: diabetes Blood Disorders: NONE Cancer(s): NONE RECREATION FACILITY MANAGER/Reproductive: NONE Surgical History Surgical History: aortic valve replacement Psychosocial History Where Do You Live? Home Who Do You Live With? spouse Services at Home: None Primary Language: Croatian Smoking Status: Never Smoked ETOH Use: denies use Illicit Drug Use: marijuana Functional Ability ADLs Independent: dressing, eating, toileting, bathing. Ambulation: independent IADLs Independent: shopping, housework, finances, food prep, telephone, transportation , medication admin. Exam & Diagnostic Data Vital Signs and I&O Vital Signs Date Time Temp Pulse Resp B/P Pulse O2 O2 Flow FiO2 Ox Delivery Rate 10/17 1732 74 10/17 1612 98.1 20 20 162/70 96 Room Air 10/17 1400 80 10/17 1200 76 / 1000 74 10/17 0941 89 / 0834 98.0 98 20 170/70 96 Room Air 10/17 0000 99.2 98 20 150/70 97 Room Air 10/16 2229 99.6 90 18 151/78 96 Room Air Room Air 10/16 2151 98.3 90 18 149/76 99 Room Air 10/16 2006 97 Room Air Room Air 10/16 2001 89 18 159/77 97 Room Air Room Air 10/16 1946 97.4 90 18 197/97 95 Room Air Room Air Intake & Output 10/17 1600 10/17 0800 10/17 0000 10/16 1600 10/16 0800 10/16 0000 Intake Total 700 300 Output Total 650 1400 700 Balance 50 -1100 -700 Intake, IV 300 300 Intake, Oral 400 Output, Urine 650 1400 700 Patient 245 lb Weight Physical Exam: General: WD/ WN male in NAD; alert and oriented x 3 with left sided neglect HEENT: NC/ AT, PERRL, EOMI Heart: RRR with mechanical valve click Lungs: clear bilaterally Abdomen: soft, NT, +ve bowel sounds Extremities: no edema Diagnostic Data EKG Results sinus rhythm Assessment/Plan Assessment/Plan * This patient has no evidence of myocardial ischemia, decompensated CHF or dysrythmia's. Unfortunately, he was not compulsive about maintaining a therapeutic INR in the setting of a mechanical prosthetic heart valve and I suspect his CVA was embolic from this device. This patient should be anticoagulated with IV heparin. There is some risk of hemorrhagic transformation in the setting of a large stroke but neurology thought it was reasonable to begin anticoagulation. He should be monitored in the ICU. * The patient's blood pressure is running high but I would allow permissive hypertension up to 150mmHg for now. We will attempt to lower his BP again tomorrow to the upper limits of normal at about 140. Consult Acknowledgment - Thank you for your consult request.
--- NOTE | 2016-10-17 20:37 | Cons- Neurology ---
General Information and HPI Consulting Request Date of Consult: 10/17/16 Requested By: CAMMIE MARTIN,RANJANA Reason for Consult: Confusion and disorientation Source of Information: patient, family, old records Exam Limitations: not alert/orientated, clinical condition, confusion, poor historian History of Present Illness: This is a 60 year old man with past medical history of aortic valve replacement last year who was supposed to be on warfarin therapy who was BIBA to the ER after being found with decreased mentation and difficulty with atriculation. Per his spouse the symptoms began at noon the day of the admission. She had received a number of texts that did not make sense and subsequently called the polce to check on him. In the ER the patient had little insight into why he was brought in. He complained of a headache and had an episode of vomiting. Currently, he is somewhat more aware of his diagnosis of a stroke and complains of a "blasting" headache. Otherwise still seemingly confused andonly partially oriented. Allergies/Medications Allergies: Coded Allergies: No Known Allergies (10/16/16) Home Med List: Aspirin (Ecotrin*) 81 MG TABLET.DR 1 TAB PO DAILY BLOOD THINNER (Reported) Atorvastatin Calcium 10 MG TABLET 1 TAB PO DAILY HLP (Reported) Insulin Glargine,Hum.rec.anlog (Lantus Solostar) 100 UNIT/ML (3 ML) INSULN.PEN 50 UNIT SC QPM DM (Reported) Insulin Lispro (Humalog) 100 UNIT/ML VIAL 20 U SC Q8 DM (Reported) Metoprolol Tartrate 50 MG TABLET 1 TAB PO BID HTN (Reported) Ramipril 2.5 MG CAPSULE 1 CAP PO DAILY HTN (Reported) Warfarin Sodium (Coumadin) (Unknown Strength) TABLET (Unknown Dose) PO AD BLOOD THINNER (Reported) Current Medications: Current Medications Sig/Suzan Start time Last Medication Dose Route Stop Time Status Admin Acetaminophen 650 MG Q8P PRN 10/17 1500 AC PO Acetaminophen 1,000 MG Q6P PRN 10/17 0100 AC IV Aspirin 81 MG DAILY 10/17 1000 AC 10/17 PO 1046 Aspirin 300 MG ONCE ONE 10/16 2114 DC 10/16 WI 10/16 2115 2145 Aspirin 325 MG ONCE ONE 10/16 2030 CAN PO 10/16 203 Atorvastatin Calcium 80 MG 1700 10/17 1700 AC 02/06 PO 1601 Dextrose/Sodium 1,000 ML Q8H 10/17 0045 DC 10/17 Chloride IV 0100 Heparin Sodium 25,000 UNIT Q24H 10/17 1930 AC (Porcine) IV Sodium Chloride 500 ML Influenza Virus 0.5 ML ONCE ONE 10/17 929 DC 10/17 Vaccine IM 10/17 0931 1046 Insulin Aspart 0 TIDAC 10/17 1700 AC 10/17 SC 1906 Insulin Human Regular 0 Q6 10/17 0040 DC 10/17 SC 1339 Review of Systems Review of Systems: As per HPI. No other information is available. Past History Travel History Traveled to [place] past 21 day No Medical History Neurological: NONE EENT: NONE Cardiovascular: aortic valve replacement Respiratory: NONE Gastrointestinal: GI BLEED Hepatic: NONE Renal: NONE Musculoskeletal: NONE Psychiatric: NONE Endocrine: diabetes Blood Disorders: NONE Cancer(s): NONE AMBULETTE DRIVER/Reproductive: NONE Surgical History Surgical History: aortic valve replacement Psychosocial History Where Do You Live? Home Who Do You Live With? spouse Services at Home: None Primary Language: Samoan Smoking Status: Never Smoked ETOH Use: denies use Illicit Drug Use: marijuana Functional Ability ADLs Independent: dressing, eating, toileting, bathing. Ambulation: independent IADLs Independent: shopping, housework, finances, food prep, telephone, transportation , medication admin. Exam & Diagnostic Data Vital Signs and I&O Vital Signs Date Time Temp Pulse Resp B/P Pulse O2 O2 Flow FiO2 Ox Delivery Rate 10/17 1732 74 10/17 1612 98.1 20 20 162/70 96 Room Air 10/17 1400 80 / 1200 76 / 1000 74 / 0941 89 / 0834 98.0 98 20 170/70 96 Room Air 02/ 0000 99.2 98 20 150/70 97 Room Air / 2229 99.6 90 18 151/78 96 Room Air Room Air 10/16 2151 98.3 90 18 149/76 99 Room Air Intake & Output 10/17 1600 02/06 0800 / 0000 Intake Total 700 300 Output Total 650 1400 700 Balance 50 -1100 -700 Intake, IV 300 300 Intake, Oral 400 Output, Urine 650 1400 700 Patient 245 lb Weight Physical Exam: Alert, but somwhat confused, language not always fluent or coherent. S1 and S2 are normal, RRR. EOMI, ROBERT, no clear nystagmus. Face symemtric, tongue and uvula midline, VF confrontation - not clear if there is a field cut as patient's attention is poor. Strength 5/5 throughout. No clear sensory deficits. FNF wnl. Reflexes symemtric. Toes equivocal. Gait not tested. Last 48 Hours of Lab Results: Laboratory Tests 10/17 10/17 10/16 0630 0630 2221 Chemistry Sodium (137 - 145 mmol/L) 138 Potassium (3.5 - 5.1 mmol/L) 4.5 Chloride (98 - 107 mmol/L) 103 Carbon Dioxide (22 - 30 mmol/L) 20 L Anion Gap (5 - 16) 15 BUN (9 - 20 mg/dL) 17 Creatinine (0.7 - 1.2 mg/dL) 1.0 Estimated GFR (>60 ml/min) > 60 BUN/Creatinine Ratio (7 - 25 %) 17.0 Hemoglobin A1c Pending Triglycerides (<150 mg/dL) 62 Cholesterol (< 200 MG/DL) 160 LDL Cholesterol, Calc (65 - 129 mg/dL) 93 HDL Cholesterol (40 - 60 mg/dL) 55 Cholesterol/HDL Ratio (0.00 - 4.88 %) 3 TSH Cancelled Free T4 Cancelled Coagulation PT (9.4 - 12.5 SEC) 13.1 H INR (0.90 - 1.17) 1.25 H Hematology CBC w Diff NO MAN DIFF REQ Cancelled WBC (4.8 - 10.8 /CUMM) 8.0 Cancelled RBC (4.70 - 6.10 /CUMM) 4.16 L Cancelled Hgb (14.0 - 18.0 G/DL) 13.8 L Cancelled Hct (42 - 52 %) 40.5 L Cancelled MCV (80.0 - 94.0 FL) 97.4 H Cancelled MCH (27.0 - 31.0 PG) 33.2 H Cancelled RDW (11.5 - 14.5 %) 13.5 Cancelled Plt Count (130 - 400 /CUMM) 209 Cancelled MPV (7.4 - 10.4 FL) 8.4 Cancelled Gran % (42.2 - 75.2 %) 79.7 H Lymphocytes % (20.5 - 51.1 %) 13.0 L Monocytes % (1.7 - 9.3 %) 7.0 Eosinophils % (0 - 5 %) 0.1 Basophils % (0.0 - 2.0 %) 0.2 Absolute Granulocytes (1.4 - 6.5 /CUMM) 6.4 Absolute Lymphocytes (1.2 - 3.4 /CUMM) 1.0 L Absolute Monocytes (0.10 - 0.60 /CUMM) 0.6 Absolute Eosinophils (0.0 - 0.7 /CUMM) 0 Absolute Basophils (0.0 - 0.2 /CUMM) 0 PUBS MCHC (33.0 - 37.0 G/DL) 34.1 Cancelled 10/16 Blood Gas pH (7.35 - 7.45 PH) 7.46 H pCO2 (35 - 45 TORR) 32 L pO2 (80 - 100 TORR) 87 HCO3 (21 - 28 MEQ/L) 22 ABG O2 Sat (Measured) (>96.0 %) 96.0 P-50 (Temp Corrected) Y Carboxyhemoglobin (1.5 - 5.0 %) 1.0 L Calc Total Hemoglobin (13.5 - 18.0 %) 14 O2 Concentration % RM/AIR Temperature (97.0 - 100.0 FARH) 97.0 O2 Delivery Method RA Miscellaneous Phlebotomy Draw Site RIGHT RADIAL Toxicology Urine Opiates Screen (>2000 NG/ML) < 100.00 Methadone Screen (>300 NG/ML) < 40 Barbiturate Screen (>200 NG/ML) < 60 Ur Phencyclidine Scrn (>25 NG/ML) < 6.00 Amphetamines Screen (>1000 NG/ML) < 100 U Benzodiazepines Scrn (>200 NG/ML) < 85 Urine Cocaine Screen (>300 NG/ML) < 50 Urine Cannabis Screen (>50 NG/ML) > 80.00 H Urines Urine Color (YEL,AMB,STR) YEL Urine Clarity (CLEAR) CLEAR Urine pH (5.0 - 8.0) 6.0 Ur Specific [place] (1.001 - 1.035) 1.025 Urine Protein (NEG,<30 MG/DL) TRACE H Urine Ketones (NEG) 40 H Urine Nitrite (NEG) NEG Urine Bilirubin (NEG) NEG Urine Urobilinogen (0.1 - 1.0 EU/dl) 0.2 Ur Leukocyte Esterase (NEG) NEG Ur Microscopic SEDIMENT EXAMINED Urine RBC (0 - 5 /HPF) 1-3 Urine WBC (0 - 2 /HPF) RARE Ur Epithelial Cells (NONE,FEW) FEW Urine Hemoglobin (NEG) TRACE-LYSED H Urine Glucose (N MG/DL) >=1000 H 10/16 193 Chemistry Sodium (137 - 145 mmol/L) 137 Potassium (3.5 - 5.1 mmol/L) 4.4 Chloride (98 - 107 mmol/L) 101 Carbon Dioxide (22 - 30 mmol/L) 23 Anion Gap (5 - 16) 13 BUN (9 - 20 mg/dL) 22 H Creatinine (0.7 - 1.2 mg/dL) 1.2 Estimated GFR (>60 ml/min) > 60 BUN/Creatinine Ratio (7 - 25 %) 18.3 Glucose (65 - 99 mg/dL) 343 H Calcium (8.4 - 10.2 mg/dL) 9.5 Total Bilirubin (0.2 - 1.3 mg/dL) 0.9 Direct Bilirubin (< 0.4 mg/dL) 0.6 H AST (17 - 59 U/L) 31 ALT (21 - 72 U/L) 40 Alkaline Phosphatase (< 127 U/L) 116 Troponin I (<0.11 ng/ml) 0.01 Total Protein (6.3 - 8.2 g/dL) 7.6 Albumin (3.5 - 5.0 g/dL) 4.4 TSH (0.270 - 4.200 uIU/mL) 2.010 Free T4 (0.64 - 1.79 ng/dL) 1.92 H Coagulation PT (9.4 - 12.5 SEC) 12.4 INR (0.90 - 1.17) 1.18 H APTT (25 - 37 SEC) 30 Hematology CBC w Diff NO MAN DIFF REQ WBC (4.8 - 10.8 /CUMM) 9.0 RBC (4.70 - 6.10 /CUMM) 4.19 L Hgb (14.0 - 18.0 G/DL) 14.0 Hct (42 - 52 %) 40.8 L MCV (80.0 - 94.0 FL) 97.3 H MCH (27.0 - 31.0 PG) 33.4 H RDW (11.5 - 14.5 %) 13.1 Plt Count (130 - 400 /CUMM) 223 MPV (7.4 - 10.4 FL) 7.6 Gran % (42.2 - 75.2 %) 71.4 Lymphocytes % (20.5 - 51.1 %) 18.0 L Monocytes % (1.7 - 9.3 %) 9.2 Eosinophils % (0 - 5 %) 1.1 Basophils % (0.0 - 2.0 %) 0.3 Absolute Granulocytes (1.4 - 6.5 /CUMM) 6.5 Absolute Lymphocytes (1.2 - 3.4 /CUMM) 1.6 Absolute Monocytes (0.10 - 0.60 /CUMM) 0.8 H Absolute Eosinophils (0.0 - 0.7 /CUMM) 0.1 Absolute Basophils (0.0 - 0.2 /CUMM) 0 PUBS MCHC (33.0 - 37.0 G/DL) 34.3 Serology RPR Titer/FTA (NONREACTIVE) NONREACTIVE Toxicology Serum Alcohol (<10 MG/DL) < 10.0 Cancelled Imaging/Other Studies: NCHCT shows some art/white loss of differentiation, but otherwise is farely normal. Assessment/Plan Assessment: 60 year old man with a new onset R temporal lobe infarct, most likely due to occlusion of the inferior branch of the MCA. Since the NCHCT was done relatively early after onset of symptoms, it may not have revealed the full extent of the stroke. The patient was subtherapeutic coming in and it is likely that the stroke is secondary to a valve vegetation. Recommendations: 1. Since cardiology is looking to restart anti-coagulation BRITNEY, and since it seems that the stroke is mostly confined to the temporal lobe, I am alright with restarting coumadin contingent on moving the patient for observation in the ICU tonight for mroe frequent neurochecks. 2. Recommend repeating NCHCT in AM to assess radiological evolution in light of MRI not being available till . 3. Echo and CD. 4. MRI brain on Monday. 5. Telemetry to monitor for PAF. 6. If the patient is on a heparin bridge as a bridge to coumadin aspirin should be stopped. Otherwise could stop heparin and use aspirin as a bridge but not both simultaneously. 7. Maintain systolic BPs < 180 systolic. Treat with labetolol 10mg if exceeds it. DO NOT allow BP to drop precipitously. Consult Acknowledgment - Thank you for your consult request.
[2016-10-17 20:40] VITALS: BP 153/84
--- NOTE | 2016-10-17 21:33 | Event Note ---
Event Note Event Note: The patient was evaluated by microsoft solutions architect Dr. Branch this evening, a decision to start heparin IV was made, Dr. Branch contacted the neurologist and there is a high risk of developing hemorrhagic stroke. The plan is to transfer the patient to ICU for close monitoring and frequent neuro check while on IV heparin. The family was called (Anita Maldonado) and son (Aashish Hernandez), family is aware.
--- NOTE | 2016-10-17 21:33 | NUR ---
2039= RECIEVED PT FROM 1NO. PT ALERT/CONFUSED TO TIME AND PLACE. DIFFICULTY FINDING WORDS. ABLE TO SPEAK. NO FACIAL DROOP NOTED. LEFT ARM AND LEG SLIGHTLY WEAKER THAN RIGHT SIDE. SBP 150'S. MSR 70-90S. PT HAS A SLIGHT HEADACHE, MEDICATED WITH IV TYLENOL. IV HEPARIN GTT STARTED PER ORDERS. PER MD YAN GIVE 5000 UNIT IV BOLUS PRIOR TO STARTING GTT. RA 92-94%. PLACED ON 2L/NC O2 SAT 96%. BEDALARM IN PLACE, PT IMPULSIVE AT TIMES. PUPILS EQUAL REACTIVE 3MM BRISK. WILL CONT TO MONITOR.
[2016-10-17 22:00] VITALS: BP 178/65
[2016-10-18] VITALS (8 sets, daily range): BP systolic 130–170; BP diastolic 64–100
--- NOTE | 2016-10-18 00:09 | NUR ---
PT AWAKE AND ALERT, KNOWS HIS BIRTHDATE, KNOWS HE IS IN THE HOSPITAL BUT HE DOES NOT KNOW THE NAME OF THE HOSPITAL. DATE IS OFF BY 2 YEARS AND HE DOES NOT KNOW THE DAY AND TIME. MOVING ALL HIS EXTREMETIES, FOLLOWING COMMANDS. EXTEMETIES ARE STRONG AND ABLE TO RESIST GRAVITY. PUPILS ARE EQUAL, RESPONSE A LITTLE SLUGGOSH. MANUAL BP 170/100, AWARE.
[2016-10-18 03:21] LABS: ABSOLUTE BASOPHIL COUNT 0 /CUMM (0.0-0.2); ABSOLUTE EOSINOPHIL COUNT 0 /CUMM (0.0-0.7); ABSOLUTE GRANULOCYTE CT 7.3 /CUMM (1.4-6.5); ABSOLUTE LYMPH COUNT 2.2 /CUMM (1.2-3.4); ABSOLUTE MONOCYTE COUNT 1.2 /CUMM (0.10-0.60); BASOPHIL % 0.2 % (0.0-2.0); EOSINOPHIL % 0.4 % (0-5); GRANULOCYTE % 67.5 % (42.2-75.2); HEMATOCRIT 41.1 % (42-52); MEAN CORPUSCULAR HGB 32.9 PG (27.0-31.0); MEAN CORPUSCULAR HGB CONC 33.5 G/DL (33.0-37.0); MEAN CORPUSCULAR VOLUME 98.2 FL (80.0-94.0); MEAN PLATELET VOLUME 7.9 FL (7.4-10.4); PLATELET COUNT 227 /CUMM (130-400); RBC DISTRIBUTION WIDTH 13.3 % (11.5-14.5); RED BLOOD CELL CT 4.19 /CUMM (4.70-6.10); WHITE BLOOD CELL COUNT 10.8 /CUMM (4.8-10.8)
[2016-10-18 03:29] LABS: PTT 78 SEC (25-37)
--- NOTE | 2016-10-18 05:08 | NUR ---
[place], [place] 500ML BOLUS ORDERED BY .
--- NOTE | 2016-10-18 07:38 | PN- Housestaff ---
NATALIE MARTIN,[facility] 10/18/16 0738: Subjective Follow-up For: 1-Right MCA ischemic stroke in the presence of Prosthetic aortic valve Subjective: Patient was seen and examined. He is laying in bed and not on any distress. No acute overnight events were reported. Patient complaining of mild right side headache that he rated as 4 out of 10. Patient reported improvement of his symptoms in general. Review of Systems Constitutional: Reports: see HPI. Denies: chills, diaphoresis, fever, weakness. EENTM: Denies: blurred vision, double vision, visual changes. Cardiovascular: Reports: see HPI. Denies: chest pain, orthopena, palpitations, peripheral edema , syncope. Respiratory: Denies: cough, hemoptysis, short of breath, wheezing. Gastrointestinal: Denies: abdominal pain, constipation, diarrhea, nausea, vomiting. Genitourinary: Denies: dysuria. Musculoskeletal: Denies: back pain. Neurological/Psychological: Reports: headache, numbness (on the left arm ), paresthesia (on left arm), tingling (on left arm ). Denies: confusion, tremors. Objective Last 24 Hrs of Vital Signs/I&O Vital Signs Date Time Temp Pulse Resp B/P Pulse O2 O2 Flow FiO2 Ox Delivery Rate 10/18 08 98.6 88 24 138/64 98 Nasal 2.0L Cannula 10/18 0800 98 Nasal 2.0L Cannula 10/18 0600 80 18 147/69 02/ 0400 98.7 77 22 130/70 / 0400 96 Nasal 2.0L Cannula 10/18 0200 88 22 145/70 02/ 0000 98.4 85 18 170/100 02/07 0000 96 Nasal 2.0L Cannula / 0000 98.4 85 18 170/100 96 Nasal 2.0L Cannula 10/17 2200 98.9 92 26 178/65 02/06 2040 98.9 96 18 153/84 02/ 1732 74 02/ 1612 98.1 20 20 162/70 96 Room Air / 1400 80 02/06 1200 76 02/06 1000 74 /06 0941 89 Intake & Output / 1600 /07 0800 02/ 0000 Intake Total 670 189 Output Total 175 170 Balance 495 19 Intake, IV 670 189 Intake, Oral 0 Number 0 Bowel Movements Output, Urine 175 170 Physical Exam General Appearance: Alert, Oriented X3, Cooperative, No Acute Distress Skin: No Rashes HEENT: Atraumatic, PERRLA, EOMI, Mucous Membr. moist/pink Neck: Supple, No JVD Cardiovascular: Regular Rate, Normal S1, Normal S2, No Murmurs Lungs: Clear to Auscultation, Normal Air Movement Abdomen: Soft, No Tenderness Neurological: Normal Speech, Strength at 5/5 X4 Ext, decreased sensation over the left side, more impaired on the upper limb than the lower limb, alerts and oriented X3 Extremities: No Clubbing, No Cyanosis, No Edema Current Medications: Current Medications Sig/Suzan Start time Last Medication Dose Route Stop Time Status Admin Acetaminophen 650 MG Q8P PRN 10/17 1500 AC PO Acetaminophen 1,000 MG Q6P PRN / 0100 AC 10/17 IV 2122 Aspirin 81 MG DAILY 10/17 1000 AC / PO 1046 Atorvastatin Calcium 80 MG 1700 10/17 1700 AC 10/17 PO 1601 Dextrose/Sodium 1,000 ML Q8H / 0045 DC / Chloride IV 0100 Heparin Sodium 5,000 UNIT ONCE ONE 10/17 2100 DC 10/17 (Porcine) IV 10/17 2101 2104 Heparin Sodium 5,000 UNIT .STK-MED ONE 10/17 2053 DC (Porcine) IV 10/17 2054 Heparin Sodium 25,000 UNIT Q24H / 1930 AC 10/17 (Porcine) IV 2104 Sodium Chloride 500 ML Insulin Aspart 0 TIDAC 10/18 0800 DC SC Insulin Aspart 8 UNITS ONCE ONE 10/17 2245 DC / SC 10/17 2246 2245 Insulin Aspart 0 TIDAC / 2245 AC 10/18 SC 0830 Insulin Aspart 0 TIDAC / 1700 DC / SC 1906 Insulin Human Regular 0 Q6 / 0040 DC 10/17 SC 1339 Sodium Chloride 500 ML BOLUS ONE 10/18 0445 DC / IV 10/18 0544 0450 Last 24 Hrs of Lab/Norbert Results Last 24 Hrs of Labs/Mics: Laboratory Tests 10/18/16 0300: Anion Gap 13, Estimated GFR > 60, Glucose 250 H, Calcium 9.5, Phosphorus 3.3, Magnesium 2.2, Total Bilirubin 1.3, AST 29, ALT 33, Albumin 4.3, APTT 78 H, CBC w Diff NO MAN DIFF REQ, RBC 4.19 L, MCV 98.2 H, MCH 32.9 H, RDW 13.3, MPV 7.9 , Gran % 67.5, Lymphocytes % 20.5, Monocytes % 11.4 H, Eosinophils % 0.4, Basophils % 0.2, Absolute Granulocytes 7.3 H, Absolute Lymphocytes 2.2, Absolute Monocytes 1.2 H, Absolute Eosinophils 0, Absolute Basophils 0, PUBS MCHC 33.5 Microbiology 10/17 2299 UPPER RESP: Surveillance Culture - RECD 10/17 2299 GI: Surveillance Culture - RECD Assessment/Plan Assessment: Patient is 60-year-old male with h/o CAD s/p stent, recent AVR and CABG (2015) on coumadin, T2DM, HTN, who continues to smoke 'pod' is brought in for evaluation of AMS. Per ER records as told to them by the friend, patient was doing well yesterday to 1 PM until she started receiving unclear/blank texts from the patient. She called 911. In ER patient was observed to be awake and alert with a slurred and slow speech. He was found to have a left neglect and pronator drift to the left. Power 3-4/5 left upper and lower extremity. Reflexes 2+. Babinksi unequivocal left side. Patient was allowed permissive hypertension in ER EKG showed sinus rhythm CT head shows right MCA territory stroke. 1.Acute ischemic stroke CAT scan significant for right MCA territory stroke. On admission patient failed bedside swallow, he was kept nothing by mouth. Then his diet was advanced based on his swallowing eval. Patient has LDL of 89 and cholesterol of 160. Patient was given a loading dose of aspirin and continued on aspirin and statin. carotid Dopplers result was Mild atherosclerosis of the carotid arteries. No evidence of ahemodynamically significant ICA stenosis. Started on heparin as a bridge to Coumadin, urology agreed and recommended putting aspirin on hold * We will continue heparin drip * We will check INR and begin Coumadin tomorrow * We will stop aspirin * Will continue statin * Aortic check every * CT eval if any change in mental status even the fact that patient is on heparin and that increases risk of intracranial bleeding * PT/OT and speech therapy in AM. * Avoid narcotic medications 2.Prosthetic aortic valve Patient has a prosthetic aortic valve done in 2016 he's on Coumadin at home. His Coumadin was initially held due to his risk of conversion to hemorrhagic stroke. We will obtain records from [facility]. Cardiology is on board. Patient was started on heparin and this was agreed by neurology * We'll continue heparin * INR tomorrow and bridge to warfarin * Echocardiogram pending 3.Irritation/irritability Patient was agitated and irritable during the first day of admission. He is may be withdrawing from alcohol. Urine toxicology was positive only for cannabis. * [facility] protocol 4.Hypertension Will hold his antihypertensive medication at this moment, and allow for permissive hypertension blood pressure goal to be between 160-180 * hold ramipril and metoprolol 5.Diabetes * NovoLog sliding scale * Serial fingersticks Diet carbohydrate 3 with thin and chopped DVT prophylaxis Alps Patient is full code Problem List: 1. CVA (cerebral vascular accident) Pain Ratin Pain Location: Left head Pain Goal: Remain pain free Pain Plan: See assessment and plan Tomorrow's Labs & Rationales: CBC and ICU bundle LONDON MONTEMAYOR MD 10/18/16 1226: Attending MD Review Statement Attending Statement Attending MD Statement: examined this patient, discuss w/resident/PA/SACK REPAIRER, agreed w/resident/PA/SACK REPAIRER, reviewed EMR data (avail) Attending Assessment/Plan: 60M PMH HTN, HLD, aortic valve replacement self-discontinued Coumadin admitted with altered mental status in the setting of right MCA acute stroke. Patient was out of tPA or intervention window at time of admission. Had been started on ASA and statin. Today patient has 5/5 strength in all extremities. His speech is more clear and focused, though he sometimes has word finding difficulties and emotional outbursts. He has mild dysphonia as well. His cranial nerve exam is otherwise normal. Sensation is intact. Had been started on heparin drip overnight as a bridge to Coumadin for history of AVR. Repeat CT 10/18 shows evolving right MCA infarct. Plan - Continue in ICU - Continue heparin drip - Check INR tomorrow, begin Coumadin tomorrow - Discontinue ASA - Continue high dose statin - Follow speech therapy recommendations - PT/OT - Neuro checks q1h, if change in mental status obtain stat head CT to evaluate for hemorrhage - Follow up echocardiogram and carotid doppler
--- NOTE | 2016-10-18 07:50 | ECHOCARDIOGRAM REPORT ---
BLAINECITLALI Vides Age: 60 : 1955 Gender: M Exam Date: 10/17/2016 10:04 Exam Location: 1 [address] Ht (in): 74 Wt (lb): 240 BSA: 2.41 BP: 150 / 70 Ordering Physician: STACI SAEED MD Referring Physician: STACI SAEED MD Technologist: Wilfrido Mckeon [facility] Room Number: 189-1 Indications: STROKE Rhythm: Sinus Technical Quality: technically difficult study FINDINGS Left Ventricle Normal left ventricular size with mild left ventricular hypertrophy. Normal systolic function with no obvious regional wall motion abnormalities. Diastolic filling pattern is consistent with impaired LV relaxation. The ejection fraction is visually estimated at 70%. Right Ventricle The right ventricle is borderline enlarged with normal function. Right Atrium The right atrium is normal in size. Left Atrium The left atrium is normal in size. The interatrial septum is intact. Mitral Valve The mitral valve is normal in structure and function. There is no mitral regurgitation. Aortic Valve Mechanical prosthetic aortic valve with mild stenosis. There is no aortic regurgitation. Tricuspid Valve The tricuspid valve is normal in structure and function. There is no tricuspid regurgitation. Pulmonic Valve Structurally normal pulmonic valve. There is no pulmonic regurgitation. Pericardium Normal pericardium without effusion. No pleural effusion. Great Vessels Mildly enlarged aortic root dimension. The aortic arch and great vessels are well seen and are normal. CONCLUSIONS 1. Normal EF of 70% with impaired LV relaxation. 2. Mild left ventricular hypertrophy. 3. Mild right ventricular enlargment. 4. Mechanical prosthetic aortic valve with mild stenosis. 5. Mildly enlarged aortic root. Trav Branch M.D. (Electronically Signed) Final Date: 18 October 2016 07:49 MEASUREMENTS (Male / Female) Normal Values 2D ECHO LV Diastolic Diameter PLAX 3.9 cm 4.2 - 5.9 / 3.9 - 5.3 cm LV Systolic Diameter PLAX 2.1 cm 2.1 - 4.0 cm LV Fractional Shortening PLAX 46.0 % 25 - 46 % LV Ejection Fraction 2D Teich 78.0 % IVS Diastolic Thickness 1.2 cm LVPW Diastolic Thickness 1.2 cm LV Relative Wall Thickness 0.6 RV Internal Dim ED PLAX 3.4 cm 1.9 - 3.8 cm LVOT Diameter 1.9 cm Aortic Root Diameter 2.9 cm LA Systolic Diameter LX 3.1 cm 3.0 - 4.0 / 2.7 - 3.8 cm Ascending Aorta Diameter 4.3 cm DOPPLER AV Peak Velocity 251.0 cm/s AV Peak Gradient 25.2 mmHg AV Mean Velocity 162.0 cm/s AV Mean Gradient 12.0 mmHg AV Velocity Time Integral 42.2 cm LVOT Peak Velocity 103.0 cm/s LVOT Peak Gradient 4.2 mmHg LVOT Mean Velocity 62.7 cm/s LVOT Mean Gradient 2.0 mmHg LVOT Velocity Time Integral 23.5 cm LVOT Stroke Volume 66.6 cm AV Area Cont Eq vti 1.6 cm AV Area Cont Eq pk 1.2 cm MV Peak Velocity 108.0 cm/s MV Peak Gradient 4.7 mmHg MV Mean Velocity 55.0 cm/s MV Mean Gradient 1.0 mmHg Mitral E Point Velocity 56.8 cm/s Mitral A Point Velocity 95.3 cm/s Mitral E to A Ratio 0.6 MV PHT Velocity 76.0 cm/s MV Deceleration [place] 237.0 cm/s MV Pressure Half Time 96.2 ms MV Area PHT 2.3 cm MV Deceleration Time 387.0 ms PV Peak Velocity 161.0 cm/s PV Peak Gradient 10.4 mmHg PV Mean Velocity 87.9 cm/s PV Mean Gradient 4.0 mmHg PV Velocity Time Integral 23.0 cm LV E' Lateral Velocity 9.6 cm/s Mitral E to LV E' Lateral Ratio 5.9 LV E' Septal Velocity 6.7 cm/s Mitral E to LV E' Septal Ratio 8.4
--- NOTE | 2016-10-18 08:03 | NUR ---
Speech therapy: chart reviewed. Pt transferred to ICU for closer monitoring following initiation of heparin drip due to concerns of emboli from prosthetic aortic valve. ST on hold per protocol due to ICU transfer; please re-order when indicated. Of note, MBS recommended as per clinical swallowing evaluation from 10/17/16. He would benefit from MBS when appropriate to evaluate pharyngeal swallow and determine appropriate diet consistencies/swallow strategies to maximize swallow safety and minimize risk of aspiration related infection.
--- NOTE | 2016-10-18 08:52 | NUR ---
@0800-PT AWAKE/ALERT. FOLLOWS COMMANDS. ANNE. NIH 2. SLOW SPEECH NOTED WITH WORD JUMBLE AT TIMES. EQUAL STRENGTH. NO DEFICIT TO STRENGTH NOTED. AFEBRILE. THIS RN TRAVELED WITH PT TO [facility] FOR CT OF HEAD-PT ANASTASIA WELL AND BACK TO ICU WITH NO INCIDENT. SETTLED IN BED AND BREAKFAST PROVIDED-C3, NECTAR THICK. NSR HR 80S. BP STABLE 150/80. CONT ON 2LNC. O2SAT 98%, LUNGLS CLEAR. DIM BS TO BASES. DELEON IN PLACE WITH ADEQUATE OUTPUT NOTED. SKIN INTACT. TRACE TO +1 BLE EDEMA NOTED AND ALPS IN PLACE. HEP GTT CONT TO INFUSE AT 11.9 UNITS/KG/HR. NEXT PTT AT 1500. ACCUCHECK 280 AND COVERED WITH NOVOLOG SS. CONT TO MONITOR, CALL REDDY WITHIN REACH.
--- NOTE | 2016-10-18 09:36 | CT SCAN REPORT ---
EXAMINATION: CT HEAD WITHOUT CONTRAST CLINICAL INFORMATION: Assess for worsening stroke. COMPARISON: Head CT from 10/16/2016. TECHNIQUE: Contiguous axial imaging was performed from the skull base to vertex without intravenous administration of contrast. DLP: 601 mGy-cm FINDINGS: There is an evolving moderate-sized right MCA stroke involving the parietal lobe and a portion of the superior temporal lobe, portions of the posterior operculum and posterior insular cortex. There is a dense appearance to the associated right MCA branches within the sylvian fissure compatible with thrombus. There has been progressive sulcal effacement regionally without shift of the normally midline structure. There is mild mass effect on the posterior body and atrium of the right lateral ventricle. No extra-axial collections. No evidence of hemorrhagic transformation. The posterior fossa and left hemisphere appear unremarkable. The cerebellar tonsils are normally positioned. No acute osseous abnormalities. There is are small retention cysts seen in both maxillary sinuses. The nasal cavity, nasopharynx, mastoid air cells, and middle ear cavities are clear. IMPRESSION: Evolving right MCA territory acute infarct. Progressive cytotoxic edema with mild mass effect on the right lateral ventricle and regional sulcal effacement without shift of the normally midline structures. No hemorrhagic transformation.
--- NOTE | 2016-10-18 10:55 | NUR ---
PHYSICAL THERAPY. Pt TRANSFERED TO ICU FOR CLOSER MONITORING 2/2 HIGH RISK FOR HEMORRHAGIC CONVERSION S/P CVA ON HEPARIN. DISCUSSED W/ MD AND NSG THAT Pt IS APPROPRIATE TO CONTINUE WITH PT TOLERATED AND NEW CONSULT RECEIVED. REPEAT HEAD CT RESULTS THEN RETURNED AND DEMONSTRATE EVOLVING R MCA INFARCT W/ PROGRESSIVE EDEMA/MILD MASS EFFECT. CANCEL PT TREATMENT TODAY, WILL F/U APPROPRIATE. NSG IN AGREEMENT.
--- NOTE | 2016-10-18 11:42 | NUR ---
OCCUPATIONAL THERAPY NOTE: OT CONSULT RECEIVED AND CHART REVIEWED. PER HEAD CT PT WITH EVOLVING MASS EFFECT WITH EDMA. OT CX TODAY. OT WILL F/U TOMORROW IF APPROPRIATE. THANK YOU
--- NOTE | 2016-10-18 13:23 | PN- Cardiology ---
Subjective Subjective: * Patient continues to report a lack of coordination of his left arm. No headache at the present time. * sinus rhythm Objective Vital Signs and I&Os Vital Signs Date Time Temp Pulse Resp B/P Pulse O2 O2 Flow FiO2 Ox Delivery Rate 10/18 799 98.6 88 24 138/64 98 Nasal 2.0L Cannula 10/18 799 98 Nasal 2.0L Cannula 10/18 0500 80 18 147/69 10/18 0400 98.7 77 22 130/70 10/18 0400 96 Nasal 2.0L Cannula 10/18 0200 88 22 145/70 10/18 0000 98.4 85 18 170/100 10/18 0000 96 Nasal 2.0L Cannula 10/18 0000 98.4 85 18 170/100 96 Nasal 2.0L Cannula 10/17 2200 98.9 92 26 178/65 10/17 2040 98.9 96 18 153/84 10/17 1732 74 10/17 1612 98.1 20 20 162/70 96 Room Air 10/17 1400 80 Intake & Output 10/18 1600 10/18 0810/18 0000 10/17 1600 10/17 0800 10/17 0000 Intake Total 670 189 700 300 Output Total 175 188 585 9927 700 Balance 495 19 50 -1100 -700 Intake, IV 670 189 300 300 Intake, Oral 0 400 Number 0 Bowel Movements Output, Urine 175 744 037 5940 700 Patient 244 lb 245 lb Weight Physical Exam: General: WD/ WN male in NAD; alert and oriented x 3 with left sided neglect Heart: RRR with mechanical valve click Lungs: clear bilaterally Extremities: no edema Assessment/Plan Assessment/Plan * This patient has a clearly thickened prosthetic aortic valve annulus but it is not clear in his transthoracic echo images if there is any thrombus on the valve. We will continue IV heparin and will obtain a transesophageal echocardiogram to more accurately assess the valve. * Blood pressure is coming down but not precipitously. Will monitor this expectantly. * Obtain old records. Continue telemetry? Yes
[2016-10-18 16:10] LABS: PTT 77 SEC (25-37)
[2016-10-19] VITALS (9 sets, daily range): BP systolic 140–170; BP diastolic 50–89
[2016-10-19 03:22] LABS: ABSOLUTE BASOPHIL COUNT 0 /CUMM (0.0-0.2); ABSOLUTE EOSINOPHIL COUNT 0 /CUMM (0.0-0.7); ABSOLUTE GRANULOCYTE CT 8.9 /CUMM (1.4-6.5); ABSOLUTE LYMPH COUNT 1.4 /CUMM (1.2-3.4); ABSOLUTE MONOCYTE COUNT 0.9 /CUMM (0.10-0.60); BASOPHIL % 0.4 % (0.0-2.0); EOSINOPHIL % 0.1 % (0-5); GRANULOCYTE % 78.6 % (42.2-75.2); HEMATOCRIT 43.1 % (42-52); MEAN CORPUSCULAR HGB 32.8 PG (27.0-31.0); MEAN CORPUSCULAR HGB CONC 33.3 G/DL (33.0-37.0); MEAN CORPUSCULAR VOLUME 98.2 FL (80.0-94.0); MEAN PLATELET VOLUME 7.7 FL (7.4-10.4); PLATELET COUNT 223 /CUMM (130-400); RBC DISTRIBUTION WIDTH 13.4 % (11.5-14.5); RED BLOOD CELL CT 4.39 /CUMM (4.70-6.10); WHITE BLOOD CELL COUNT 11.3 /CUMM (4.8-10.8)
[2016-10-19 03:29] LABS: PT 14.1 SEC (9.4-12.5)
[2016-10-19 03:32] LABS: PTT 79 SEC (25-37)
--- NOTE | 2016-10-19 07:43 | PN- Housestaff ---
Subjective Follow-up For: 1-Right MCA ischemic stroke in the presence of Prosthetic aortic valve Subjective: Patient was seen and examined. He was sleeping prior to examining, patient looked drowsy and lethargic with intermittent very mild confusion episodes. Patient was answering most of the question properly however some of his answer was slow. Patient reported improvement of his tingling and weakness. He denies headache, lightheadedness, nausea, or vomiting. Patient only current complaint is acid reflux and indigestion. Review of Systems Constitutional: Denies: chills, diaphoresis, fever, weakness. EENTM: Denies: blurred vision, visual changes. Cardiovascular: Denies: chest pain, palpitations, syncope. Respiratory: Denies: cough, short of breath. Gastrointestinal: Denies: abdominal pain, constipation, diarrhea, nausea, vomiting. Genitourinary: Reports: see HPI. Denies: dysuria. Musculoskeletal: Reports: see HPI. Neurological/Psychological: Reports: numbness, paresthesia. Denies: headache. Objective Last 24 Hrs of Vital Signs/I&O Vital Signs Date Time Temp Pulse Resp B/P Pulse O2 O2 Flow FiO2 Ox Delivery Rate 10/19 799 95 Nasal 2.0L Cannula 10/19 799 97.3 93 20 160/80 97 Nasal 2.0L Cannula 10/19 0600 97.9 88 26 144/78 10/19 0400 97.9 88 16 148/89 10/19 0400 98 Nasal 2.0L Cannula 10/19 0200 98.1 84 24 143/85 02/ 0000 98.1 90 12 145/81 10/19 0000 97 Nasal 2.0L Cannula 10/19 0000 98.1 90 12 140/76 97 Nasal 2.0L Cannula 10/18 2200 98.9 70 20 133/70 10/18 1999 98.9 70 24 139/65 10/18 1999 95 Nasal 2.0L Cannula 10/18 1600 96 Nasal 2.0L Cannula 10/18 1600 98.9 83 22 140/80 97 Nasal 2.0L Cannula 10/18 1200 97 Nasal 2.0L Cannula Intake & Output 10/19 1600 08 0800 02 0000 Intake Total 362 572 Output Total 380 350 Balance -18 222 Intake, IV 202 192 Intake, Oral 160 380 Number 0 0 Bowel Movements Output, Urine 380 350 Physical Exam General Appearance: Alert, Oriented X3, Cooperative, No Acute Distress Skin: No Rashes HEENT: Atraumatic, PERRLA, EOMI, Mucous Membr. moist/pink Cardiovascular: Regular Rate, Normal S1, Normal S2 Lungs: Clear to Auscultation, Normal Air Movement Abdomen: Soft, No Tenderness Neurological: Normal Speech, Strength at 5/5 X4 Ext, decrease sensation on the left side more on the upper limbs than lower limbs Extremities: No Edema Current Medications: Current Medications Sig/Suzan Start time Last Medication Dose Route Stop Time Status Admin Acetaminophen 650 MG .STK-MED ONE 10/18 1102 DC PO 10/18 1103 Acetaminophen 650 MG Q8P PRN 10/17 1500 AC 10/18 PO 1104 Acetaminophen 1,000 MG Q6P PRN 10/17 0100 AC 10/17 IV 2122 Al Hydroxide/Mg 30 ML ONCE ONE 10/18 2200 DC 10/18 Hydroxide PO 10/18 220 2200 Al Hydroxide/Mg 30 ML .STK-MED ONE 10/18 2157 DC Hydroxide PO 10/18 2158 Al Hydroxide/Mg 30 ML ONCE ONE 10/18 1430 DC 10/18 Hydroxide PO 10/18 1431 1426 Al Hydroxide/Mg 30 ML .STK-MED ONE 10/18 1421 DC Hydroxide PO 10/18 1422 Aspirin 81 MG DAILY 10/17 1000 DC 10/18 PO 0941 Atorvastatin Calcium 80 MG 1700 10/17 1700 AC 10/18 PO 1648 Heparin Sodium 25,000 UNIT Q24H 10/17 1930 AC 10/18 (Porcine) IV 1807 Sodium Chloride 500 ML Insulin Aspart 2 UNITS ONCE ONE 10/18 2199 DC 10/18 SC 10/18 220 2200 Insulin Aspart 0 TIDAC 10/17 2245 10/19 SC 0756 Last 24 Hrs of Lab/Norbert Results Last 24 Hrs of Labs/Mics: Laboratory Tests 10/19/16304: PT 14.1 H, INR 1.35 H 10/19/16304: Anion Gap 15, Estimated GFR > 60, Glucose 283 H, Calcium 9.0, Phosphorus 3.7, Magnesium 2.2, Total Bilirubin 1.2, AST 27, ALT 35, Albumin 3.9, APTT 79 H, CBC w Diff NO MAN DIFF REQ, RBC 4.39 L, MCV 98.2 H, MCH 32.8 H, RDW 13.4, MPV 7.7 , Gran % 78.6 H, Lymphocytes % 12.8 L, Monocytes % 8.1, Eosinophils % 0.1, Basophils % 0.4, Absolute Granulocytes 8.9 H, Absolute Lymphocytes 1.4, Absolute Monocytes 0.9 H, Absolute Eosinophils 0, Absolute Basophils 0, PUBS MCHC 33.3 10/18/16 1443: APTT 77 H Assessment/Plan Assessment: Patient is 60-year-old male with h/o CAD s/p stent, recent AVR and CABG (2015) on coumadin, T2DM, HTN, who continues to smoke 'pod' is brought in for evaluation of AMS. Per ER records as told to them by the friend, patient was doing well yesterday to 1 PM until she started receiving unclear/blank texts from the patient. She called 911. In ER patient was observed to be awake and alert with a slurred and slow speech. He was found to have a left neglect and pronator drift to the left. Power 3-4/5 left upper and lower extremity. Reflexes 2+. Babinksi unequivocal left side. Patient was allowed permissive hypertension in ER EKG showed sinus rhythm CT head shows right MCA territory stroke. 1.Acute ischemic stroke CAT scan significant for right MCA territory stroke. On admission patient failed bedside swallow, he was kept nothing by mouth. Then his diet was advanced based on his swallowing eval. Patient has LDL of 89 and cholesterol of 160. Patient was given a loading dose of aspirin and continued on aspirin and statin. carotid Dopplers result was Mild atherosclerosis of the carotid arteries. No evidence of ahemodynamically significant ICA stenosis. Started on heparin as a bridge to Coumadin, urology agreed and recommended putting aspirin on hold * We will continue heparin drip * We will check INR and discuss with cardiology about starting warfarin * We will keep aspirin on hold * Will continue statin * neuro check every hour * CT eval if any change in mental status even the fact that patient is on heparin and that increases risk of intracranial bleeding * PT/OT and speech therapy * Avoid narcotic medications 2.Prosthetic aortic valve Patient has a prosthetic aortic valve done in 2016 he's on Coumadin at home. His Coumadin was initially held due to his risk of conversion to hemorrhagic stroke. We obtained records from [facility] it's on the chart. Cardiology is on board. Patient was started on heparin and this was agreed by neurology. Patient valve are MRI compatible. * We'll continue heparin per now * We will discuss cardiology bridge to warfarin 3.Irritation/irritability Patient was agitated and irritable during the first day of admission. He is may be withdrawing from alcohol. Urine toxicology was positive only for cannabis. * [facility] protocol 4.Hypertension Will hold his antihypertensive medication at this moment, and allow for permissive hypertension blood pressure goal to be between 160-180 * hold ramipril and metoprolol 5.Diabetes * NovoLog sliding scale * Serial fingersticks 6. GERD Patient is complaining of severe acid reflux * Will be on PPI twice a day 40 mg Diet carbohydrate 3 with thin and chopped DVT prophylaxis Alps Patient is full code Problem List: 1. CVA (cerebral vascular accident) Pain Ratin Pain Location: na Pain Goal: Remain pain free Pain Plan: see A & P Tomorrow's Labs & Rationales: cbc and ICU bundle
--- NOTE | 2016-10-19 08:23 | NUR ---
PHYSICAL THERAPY. Pt W/ MRI PENDING TODAY TO FURTHER ASSESS EVOLVING CVA AND ALSO SCHEDULED FOR NAYELI. PT WILL F/U APPRORPIATE.
--- NOTE | 2016-10-19 09:31 | NUR ---
@0800-PT DROWSY.AROUS. FOLLOWS COMMANDS-BUT SLOW TO RESPOND AT TIMES. DISORIENTED TO TIME. WEAK TO ALL EXTREMTIES BUT EQUAL STRENGTH. PUPILS EQUAL AND REACTIVE. GARBLED SPEECH AT TIMES. NO FACIAL DROOP NOTED. CONT ON 2LNC 02SAT 96%. NO RESP DISTRESS NOTED. NSR HR 90S. BP STABLE SYSTOIC 130-150. REMAINS NPO FOR NAYELI THIS AM. +BS. ABD SOFT. NO BM X [address], RENEWED THIS AM. ADEQUATE OUTPUT NOTED. SKIN INTACT. ALPS IN PLACE. IV HEPARIN CONT TO INFUSE AT 26ML/HR OR 11.9 UNITS/KG/HR. ACCUCHECK 301 AND COVERED WITH NOVOLOG SS. CONT TO MONITOR, CALL REDDY WITHIN REACH.
--- NOTE | 2016-10-19 09:39 | PN- Neurology ---
Subjective Subjective: The patient is currently lethargic but arousable. He attends to the discussion that I am having with his and 2 adult children. He has no specific complaints. He has live in [facility]. 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 His states that when she tried to text him he was not responding back appropriately so she called police who then found him and brought him to the [place] emergency room. He has an aortic valve replacement and is on chronic Coumadin therapy. He has sustained a right MCA territory ischemic stroke. Objective Vital Signs and I&Os Vital Signs Date Time Temp Pulse Resp B/P Pulse O2 O2 Flow FiO2 Ox Delivery Rate 10/19 1200 97 Nasal 3.0L Cannula 10/19 799 95 Nasal 2.0L Cannula 10/19 799 97.3 93 20 160/80 97 Nasal 2.0L Cannula 10/19 0600 97.9 88 26 144/78 10/19 0400 97.9 88 16 148/89 10/19 0400 98 Nasal 2.0L Cannula 10/19 0200 98.1 84 24 143/85 10/19 0000 98.1 90 12 145/81 10/19 0000 97 Nasal 2.0L Cannula 10/19 0000 98.1 90 12 140/76 97 Nasal 2.0L Cannula 10/18 2200 98.9 70 20 133/70 10/18 1999 98.9 70 24 139/65 10/18 1999 95 Nasal 2.0L Cannula 10/18 1600 96 Nasal 2.0L Cannula 10/18 1600 98.9 83 22 140/80 97 Nasal 2.0L Cannula Intake & Output 10/19 1600 10/19 0810/19 0000 10/18 1600 10/18 0810/18 0000 Intake Total 362 572 716 670 189 Output Total 380 350 500 175 170 Balance -18 222 216 495 19 Intake, IV 202 192 216 670 189 Intake, Oral 160 380 500 0 Number 0 0 0 0 Bowel Movements Output, Urine 380 350 500 175 170 Patient 244 lb Weight Physical Exam: Lethargic, arousable Oriented to person, year, month. Disoriented to place. States "hotel" Full extraocular motility Pupils equal round and reactive to light. On visual field testing he extinguishes the left hemifield with double simultaneous stimulation Mild left lower facial weakness Tongue deviates to left Speech is fluent but dysarthric, with intact naming repetition and comprehension Motor: Mild left hemiparesis with 4 minus out of 5 strength Right arm and leg strength normal Mildly reduced muscle tone on the left, normal on the right Left hemisensory inattention Current Medications: Current Medications Sig/Suzan Start time Last Medication Dose Route Stop Time Status Admin Acetaminophen 650 MG .STK-MED ONE 10/18 1102 DC PO 10/18 1103 Acetaminophen 650 MG Q8P PRN 10/17 1500 AC 10/18 PO 1104 Acetaminophen 1,000 MG Q6P PRN 10/17 0100 AC 10/17 IV 2122 Al Hydroxide/Mg 30 ML ONCE ONE 10/18 220 DC 10/18 Hydroxide PO 10/18 220 2200 Al Hydroxide/Mg 30 ML .STK-MED ONE 10/18 2157 DC Hydroxide PO 10/18 2158 Al Hydroxide/Mg 30 ML ONCE ONE 10/18 1430 DC 10/18 Hydroxide PO 10/18 1431 1426 Al Hydroxide/Mg 30 ML .STK-MED ONE 10/18 1421 DC Hydroxide PO 10/18 1422 Aspirin 81 MG DAILY 10/17 1000 DC 10/18 PO 0941 Atorvastatin Calcium 80 MG 1700 10/17 1700 AC 10/18 PO 1648 Heparin Sodium 25,000 UNIT Q24H / 1930 AC 10/18 (Porcine) IV 1807 Sodium Chloride 500 ML Insulin Aspart 2 UNITS ONCE ONE 10/180 DC 10/18 SC 10/18 220 2200 Insulin Aspart 0 TIDAC 10/17 2245 10/19 SC 0756 Results Last 24 Hours of Lab Results: Laboratory Tests 10/19 10/19 10/18 0305 0305 1443 Chemistry Sodium (137 - 145 mmol/L) 139 Potassium (3.5 - 5.1 mmol/L) 4.4 Chloride (98 - 107 mmol/L) 100 Carbon Dioxide (22 - 30 mmol/L) 23 Anion Gap (5 - 16) 15 BUN (9 - 20 mg/dL) 30 H Creatinine (0.7 - 1.2 mg/dL) 1.0 Estimated GFR (>60 ml/min) > 60 Glucose (65 - 99 mg/dL) 283 H Calcium (8.4 - 10.2 mg/dL) 9.0 Phosphorus (2.5 - 4.5 mg/dL) 3.7 Magnesium (1.6 - 2.3 mg/dL) 2.2 Total Bilirubin (0.2 - 1.3 mg/dL) 1.2 AST (17 - 59 U/L) 27 ALT (21 - 72 U/L) 35 Albumin (3.5 - 5.0 g/dL) 3.9 Coagulation PT (9.4 - 12.5 SEC) 14.1 H INR (0.90 - 1.17) 1.35 H APTT (25 - 37 SEC) 79 H 77 H Hematology CBC w Diff NO MAN DIFF REQ WBC (4.8 - 10.8 /CUMM) 11.3 H RBC (4.70 - 6.10 /CUMM) 4.39 L Hgb (14.0 - 18.0 G/DL) 14.4 Hct (42 - 52 %) 43.1 MCV (80.0 - 94.0 FL) 98.2 H MCH (27.0 - 31.0 PG) 32.8 H RDW (11.5 - 14.5 %) 13.4 Plt Count (130 - 400 /CUMM) 223 MPV (7.4 - 10.4 FL) 7.7 Gran % (42.2 - 75.2 %) 78.6 H Lymphocytes % (20.5 - 51.1 %) 12.8 L Monocytes % (1.7 - 9.3 %) 8.1 Eosinophils % (0 - 5 %) 0.1 Basophils % (0.0 - 2.0 %) 0.4 Absolute Granulocytes (1.4 - 6.5 /CUMM) 8.9 H Absolute Lymphocytes (1.2 - 3.4 /CUMM) 1.4 Absolute Monocytes (0.10 - 0.60 /CUMM) 0.9 H Absolute Eosinophils (0.0 - 0.7 /CUMM) 0 Absolute Basophils (0.0 - 0.2 /CUMM) 0 PUBS MCHC (33.0 - 37.0 G/DL) 33.3 Recent Imaging Studies: Hd CT 2-7 FINDINGS: There is an evolving moderate-sized right MCA stroke involving the parietal lobe and a portion of the superior temporal lobe, portions of the posterior operculum and posterior insular cortex. There is a dense appearance to the associated right MCA branches within the sylvian fissure compatible with thrombus. There has been progressive sulcal effacement regionally without shift of the normally midline structure. There is mild mass effect on the posterior body and atrium of the right lateral ventricle. No extra-axial collections. No evidence of hemorrhagic transformation. The posterior fossa and left hemisphere appear unremarkable. The cerebellar tonsils are normally positioned. No acute osseous abnormalities. There is are small retention cysts seen in both maxillary sinuses. The nasal cavity, nasopharynx, mastoid air cells, and middle ear cavities are clear. IMPRESSION: Evolving right MCA territory acute infarct. Progressive cytotoxic edema with mild mass effect on the right lateral ventricle and regional sulcal effacement without shift of the normally midline structures. No hemorrhagic transformation. DICTATED BY: OSMAN ZABALA MD DATE/TIME DICTATED:10/18/16830 Car US 2-6 IMPRESSION: Mild atherosclerosis of the carotid arteries. No evidence of a hemodynamically significant ICA stenosis. DICTATED BY: JONNA CALIX MD DATE/TIME DICTATED:10/17/16842 ECHO CONCLUSIONS 1. Normal EF of 70% with impaired LV relaxation. 2. Mild left ventricular hypertrophy. 3. Mild right ventricular enlargment. 4. Mechanical prosthetic aortic valve with mild stenosis. 5. Mildly enlarged aortic root. Trav Branch M.D. 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
--- NOTE | 2016-10-19 11:23 | NUR ---
@1100-DR RAMÍREZ, JUDGE CLERK AMY AND JUMPBASTING LINING BASTER AT BEDSIDE FOR NAYELI. PT ASSISTED TO L SIDE AND MEDICATED PER ANESTHESIA-SEE ANESTHESIA RECORD FOR DETAILS. BUBBLE STUDY DONE. PT ANASTASIA WELL. VSS. WILL RECOVER PT AFTER PROCEDURE COMPLETE.
--- NOTE | 2016-10-19 12:35 | NUR ---
OCCUPATIONAL THERAPY NOTE: CHART REVIEWED. PT IS SCHEDULED FOR A MRI IN AM TO FURTHER EVALUATE PT'S EVOLVING CVA. PT IS ALSO SCHEDULED FOR A NAYELI. OT WILL F/U WHEN MEDICALLY APPROPRIATE. THANK YOU
--- NOTE | 2016-10-19 14:36 | NUR ---
SPEECH THERAPY: PT SEEN AT BEDSIDE, SLEEPING. LUNCH TRAY PRESENT. PT UNDERWENT NAYELI PROCEDURE EARLIER TODAY, SUSPECT INCREASED LETHARGY IS A RESULT. PT DECLINING PO INTAKE 2' WANTING TO SLEEP. PER RN, PT TOLERATED THIN LIQUIDS/ICE CHIPS WITH NO DIFFICULTY. ST CONTINUE TO FOLLOW FOR DIET TOLERANCE.
[2016-10-19 15:48] LABS: PTT 70 SEC (25-37)
--- NOTE | 2016-10-19 17:50 | NUR ---
@1745-AFTER TURNING AND REPOSITIONING, PT NOTED TO NEGLECT L SIDE MORE THAN NOTED EARLIER. PT UNABLE TO LIFT L ARM LIKE ON PREV NIH AT 1700. UNABLE TO RESIST GRAVITY TO L SIDE. ABLE TO SQUEEZE L HAND WEAK. ABLE TO MOVE L LEG BUT NOT RESIST AGAINST GRAVITY. PT DOES C/O TINGLING TO L SIDE. PUPILS EQUAL AND REACTIVE. HOUSESTAFF CALLED TO BEDSIDE FOR EVAL AND PT TO HAVE CT SCAN OF HEAD STAT-AWAITING STRETCHER.
--- NOTE | 2016-10-19 18:08 | PN- Cardiology ---
Subjective Subjective: * No specific complaints. * Patient is much more lethargic and demonstrates less movement on his left side. * sinus rhythm Objective Vital Signs and I&Os Vital Signs Date Time Temp Pulse Resp B/P Pulse O2 O2 Flow FiO2 Ox Delivery Rate 10/19 1600 97.6 101 18 142/50 94 Nasal 2.0L Cannula 10/19 1545 95 Nasal 2.0L Cannula 10/19 1200 97 Nasal 3.0L Cannula 10/19 08 95 Nasal 2.0L Cannula 10/19 799 97.3 93 20 160/80 97 Nasal 2.0L Cannula 10/19 0600 97.9 88 26 144/78 10/19 0400 97.9 88 16 148/89 10/19 0400 98 Nasal 2.0L Cannula 10/19 0200 98.1 84 24 143/85 10/19 0000 98.1 90 12 145/81 10/19 0000 97 Nasal 2.0L Cannula 10/19 0000 98.1 90 12 140/76 97 Nasal 2.0L Cannula 10/18 2200 98.9 70 20 133/70 10/18 2000 98.9 70 24 139/65 10/18 2000 95 Nasal 2.0L Cannula Intake & Output 10/19 1600 10/19 0800 10/19 0000 10/18 1600 10/18 0800 10/18 0000 Intake Total 487 362 572 716 670 189 Output Total 750 380 350 500 175 170 Balance -263 -18 222 216 495 19 Intake, IV 227 202 192 216 670 189 Intake, Oral 260 160 380 500 0 Number 0 0 0 0 0 Bowel Movements Output, Urine 750 380 350 500 175 170 Patient 244 lb Weight Physical Exam: General: WD/ WN male in NAD; lethargic Heart: RRR with mechanical valve click Lungs: clear bilaterally Extremities: no edema Neuro: 1/5 movement of the left arm and leg Assessment/Plan Assessment/Plan * Detailed anatomy of the patient's St. Robert valve was difficult to discern even with transesophageal echocariography. Definite thrombus was not reported by preliminary report. There was evidence of an interatrial shunt. A thickened prosthetic aortic valve annulus is noted on transthoracic echo. We will ask Dr. Posada to assess his aortic valve as well. * Keep blood pressure above 140mmHg systolic. * This patient appears to be decompensating neurologically. We will obtain a stat head CT. If he has evidence of bleeding then we will of course stop his IV heparin. Continue telemetry? Yes
--- NOTE | 2016-10-19 18:36 | CT SCAN REPORT ---
EXAMINATION: CT HEAD WITHOUT CONTRAST CLINICAL INFORMATION: Worsening left-sided weakness. Known right CVA. COMPARISON: October 16 and 2016. TECHNIQUE: Contiguous axial images of the brain were obtained without IV contrast. DLP: 601 mGy-cm. FINDINGS: There is a stable appearance to a right MCA territory infarction involving the temporoparietal region. There is stable quite minimal mass effect with shift of midline structures to the left by approximately 4 mm. There are no pathologic extra-axial fluid collections. The lateral, third, fourth ventricles are nondilated and concordant with the appearance of the sulci. There is no evidence for acute intraparenchymal hemorrhage. The paranasal sinuses and mastoid air cells are clear. There are no osseous lesions. IMPRESSION: Stable appearance of moderate right MCA territory infarction with slight shift of midline structures to the left.
--- NOTE | 2016-10-19 18:58 | NUR ---
@1830-THIS RN TRAVELED WITH PT FOR STAT CT SCAN OF HEAD DUE TO NEURO CHANGES NOTED. PT BACK TO ICU. HEP GTT REMAINS OFF AT THIS TIME. FAMILY AT BEDSIDE. CONT TO MONITOR CLOSELY.
--- NOTE | 2016-10-19 19:05 | ECHOCARDIOGRAM REPORT ---
CITLALI VALLADARES Age: 60 : Gender: M Exam Date: 10/19/2016 10:43 Exam Location: [facility] Ht (in): 73 Wt (lb): 244 BSA: 2.42 BP: 157 / 90 Ordering Physician: NAEL YAN MD Referring Physician: NAEL YAN MD Technologist: Wilfrido Mckeon REECE Room Number: 103 Indications: SOURCE OF EMBOLUS Rhythm: Sinus Technical Quality: Good Medications TIVA Ease of Transducer Insertion No Difficulty Complications None. Technical Difficulty None. FINDINGS Left Ventricle Normal size left ventricle. Mild concentric left ventricular hypertrophy. No obvious regional wall motion abnormalities. Normal left ventricular systolic function. Right Ventricle Right ventricle not well visualized, grossly normal. Right Atrium Normal right atrial size. Left Atrium Normal left atrial size. LA Appendage Normal left atrial appendage. No evidence of thrombus or spontaneous contrast in the left atrial appendage. IA Septum Suspect a patent foramen ovale. Hypermobile septum. Possible small degree of shunt flow Mitral Valve Structurally normal mitral valve. Trace mitral regurgitation. No evidence of vegetation or thrombus on the mitral valve. Aortic Valve Mechanical prosthetic aortic valve, bileaflet tilting disk type. Physiologic regurgitation of the prosthetic aortic valve. Gradient recorded across the prosthetic aortic valve within the expected range. No evidence of vegetation or obvious thrombus the mechanical aortic valve prosthesis. Tricuspid Valve Structurally normal tricuspid valve. Trace tricuspid regurgitation. No evidence of tricuspid valve vegetation or thrombus. Pulmonic Valve Pulmonic valve not well visualized, grossly normal. No evidence of pulmonic valve vegetation or thrombus. Pericardium No pericardial effusion. Great Vessels Normal size aortic root. Normal appearing aortic root and descending thoracic aorta. CONCLUSIONS Normal left atrial appendage. No evidence of thrombus or spontaneous contrast in the left atrial appendage. Suspect a patent foramen ovale. Hypermobile septum. Possible small degree of shunt flow. No evidence of vegetation or thrombus on the mitral valve. Physiologic regurgitation of the prosthetic aortic valve. Gradient recorded across the prosthetic aortic valve within the expected range. No evidence of vegetation or obvious thrombus the mechanical aortic valve prosthesis. Normal appearing aortic root and descending thoracic aorta. Carloz Lopez M.D. (Electronically Signed) Final Date: 19 October 2016 19:04 MEASUREMENTS (Male / Female) Normal Values
--- NOTE | 2016-10-19 20:10 | Discharge Summary ---
See Addendum Visit Information Visit Dates Admission Date: 10/16/16 Discharge Date: 10/19/2016 Hospital Course Course Attending Physician: LONDON Morin MD Primary Care Physician: PATIENT HAS NO PRIMARY CARE DR Consulting Request: 1 Consulting Specialty: Cardiology Consulting Physician: Trav Branch MD Reason for Consult: Prosthetic aortic valve. Consulting Request: 2 Consulting Specialty: Neurology Consulting Physician: Bee Garcia MD Reason for Consult: Acute stroke Hospital Course: 60-year-old right handed-man brought in by ambulance for sudden onset left-sided weakness and confusion. He has a medical history significant for coronary artery disease a status post stent placement, recent metaliic aortic valve placement and CABG in January 2016 at [facility] and is noncompliant with his Coumadin. Patient was awake, alert, speech was slow and at times slurred, he was able to understand our questions. Tongue and uvula midline. Neck supple. He had a left neglect, no nystagmus, pronator drift to left, Power 3/5 left upper and lower extremity. Reflexes 2+. Babinksi unequivocal left side. CT scan of the head without contrast showed right MCA stroke. Patient's EKG showed normal sinus rate and rhythm,he also had a subtherapeutic INR. With a concern about hemorrhagic transformation Coumadin was not restarted. He was admitted to Telemetry unit for evaluation and management of his stroke. Cardiology and Neurology recommendations were followed. IV Heparin was initiated on 10/17/2016 given his prosthetic valve per Cardio recs. He was transferred to ICU for closer monitoring, neurochecks given high risk for hemorrhagic transformation. While in the ICU, he had a TTE and subsequently a NAYELI which showed no aortic vegetations or thrombus, a prosthetic bileaflet tilting disk type (St. Robert's) valve with suspicion for a patent foramen ovale. IV heparin was continued. Patient showed improvement in his left sided weakness. However, on 10/19/2016 around 5.45 pm, it was noted that patient's left sided weakness was worse, with power now almost 0/5, no new facial droop or speech deficits. Repeat CT scan of the head without contrast was obtained which showed moderate right MCA territory infarction with a slight shift of midline structure to the left (4 mm ) w/o any evidence of bleeding. Patient did not have a significant drop in his BP, SBP has remained around 130-170's throughtout his stay in the ICU. New findings were discussed with Neurologist (Dr. Garcia), who suggested IV mannitol and Neurosurgery consult. Neurosurgeon (Dr. Paul) recommended that patient be transferred to [facility] Neuro ICU for intracranial pressure monitoring and possible need for craniotomy. Complications: CT shows right acute MCA territory stroke with midline shift (4 mm). Allergies: Coded Allergies: No Known Allergies (10/16/16) Significant Procedures: Transthoracic Echocardiogram (10/17/2016) CONCLUSIONS 1. Normal EF of 70% with impaired LV relaxation. 2. Mild left ventricular hypertrophy. 3. Mild right ventricular enlargment. 4. Mechanical prosthetic aortic valve with mild stenosis. 5. Mildly enlarged aortic root. Carotid doppler study (10/17/2016) Mild atherosclerosis of the carotid arteries. No evidence of a hemodynamically significant ICA stenosis. Transesophageal echocardiogram (10/19/2016) CONCLUSIONS Normal left atrial appendage. No evidence of thrombus or spontaneous contrast in the left atrial appendage. Suspect a patent foramen ovale. Hypermobile septum. Possible small degree of shunt flow. No evidence of vegetation or thrombus on the mitral valve. Physiologic regurgitation of the prosthetic aortic valve. Gradient recorded across the prosthetic aortic valve within the expected range. No evidence of vegetation or obvious thrombus the mechanical aortic valve prosthesis. Normal appearing aortic root and descending thoracic aorta. Pertinent Lab Results: Laboratory Tests 10/19 10/19 10/19 1505 0305 0305 Chemistry Sodium (137 - 145 mmol/L) 139 Potassium (3.5 - 5.1 mmol/L) 4.4 Chloride (98 - 107 mmol/L) 100 Carbon Dioxide (22 - 30 mmol/L) 23 Anion Gap (5 - 16) 15 BUN (9 - 20 mg/dL) 30 H Creatinine (0.7 - 1.2 mg/dL) 1.0 Estimated GFR (>60 ml/min) > 60 Glucose (65 - 99 mg/dL) 283 H Calcium (8.4 - 10.2 mg/dL) 9.0 Phosphorus (2.5 - 4.5 mg/dL) 3.7 Magnesium (1.6 - 2.3 mg/dL) 2.2 Total Bilirubin (0.2 - 1.3 mg/dL) 1.2 AST (17 - 59 U/L) 27 ALT (21 - 72 U/L) 35 Albumin (3.5 - 5.0 g/dL) 3.9 Coagulation PT (9.4 - 12.5 SEC) 14.1 H INR (0.90 - 1.17) 1.35 H APTT (25 - 37 SEC) 70 H 79 H Hematology CBC w Diff NO MAN DIFF REQ WBC (4.8 - 10.8 /CUMM) 11.3 H RBC (4.70 - 6.10 /CUMM) 4.39 L Hgb (14.0 - 18.0 G/DL) 14.4 Hct (42 - 52 %) 43.1 MCV (80.0 - 94.0 FL) 98.2 H MCH (27.0 - 31.0 PG) 32.8 H RDW (11.5 - 14.5 %) 13.4 Plt Count (130 - 400 /CUMM) 223 MPV (7.4 - 10.4 FL) 7.7 Gran % (42.2 - 75.2 %) 78.6 H Lymphocytes % (20.5 - 51.1 %) 12.8 L Monocytes % (1.7 - 9.3 %) 8.1 Eosinophils % (0 - 5 %) 0.1 Basophils % (0.0 - 2.0 %) 0.4 Absolute Granulocytes (1.4 - 6.5 /CUMM) 8.9 H Absolute Lymphocytes (1.2 - 3.4 /CUMM) 1.4 Absolute Monocytes (0.10 - 0.60 /CUMM) 0.9 H Absolute Eosinophils (0.0 - 0.7 /CUMM) 0 Absolute Basophils (0.0 - 0.2 /CUMM) 0 PUBS MCHC (33.0 - 37.0 G/DL) 33.3 Disposition Summary Disposition Principal Diagnosis: Right MCA ischemic stroke Additional Diagnosis: Cerebral edema and midline shift of the brain Discharge Disposition: [facility] ([facility]) Discharge Instructions General Discharge Information Code Status: Full Code Patient's Diet: NPO Patient's Activity: Activity with assistance. Fall precaution Follow-Up Instructions/Appts: Please follow-up with your neurologist and plc programmer after discharge Medications at Discharge Discharge Medications: Stop taking the following medications: Warfarin Sodium (Coumadin) (Unknown Strength) TABLET ORAL As Directed Atorvastatin Calcium (Atorvastatin Calcium) 10 MG TABLET ORAL DAILY Continue taking these medications: Aspirin (Ecotrin*) 81 MG TABLET. 1 Tablet ORAL DAILY Comments: PER PT Ramipril (Ramipril) 2.5 MG CAPSULE 1 Capsule ORAL DAILY Metoprolol Tartrate (Metoprolol Tartrate) 50 MG TABLET 1 Tablet ORAL TWICE DAILY Insulin Glargine,Hum.rec.anlog (Lantus Solostar) 100 UNIT/ML (3 ML) INSULN.PEN 50 Unit Inject into fatty tissue Every night Insulin Lispro (Humalog) 100 UNIT/ML VIAL 20 Units Inject into fatty tissue EVERY 8 HOURS Start taking the following new medications: Atorvastatin Calcium (Atorvastatin Calcium) 80 MG TABLET 80 Milligram ORAL 5 PM Qty = 60 No Refills Comments: Last Taken:10/19/16 Time:1700 Pantoprazole Sodium (Protonix) 40 MG TABLET. 40 Milligram INTRAVEN TWICE DAILY Qty = 30 No Refills Comments: Last Taken:10/19/16 Time:1344 Insulin Regular (Novolin R Inj) 1,000 UNITS/10 ML MER 0 Units Inject into fatty tissue EVERY SIX HOURS Qty = 30 No Refills Instructions: every 6 hours while NPO Blood Insulin Sugar Units <80 0 81-100 1 101-150 2 151-200 4 201-250 6 251-300 8 301-350 10 351-400 12 >400 Call Doctor Comments: NOT GIVEN Copies To: BOZENA MARTIN,CITLALI; CAMMIE MARTIN,RANJANA; SHAN MARTIN PhD,TRAV Ferreira; KEELY MARTIN,BEE Rodriguez Attending MD Review Statement Documenting Attending: RANJANA BONDS MD Other Findings: I spoke with Neurosurgeon Dr. Bozena Khanna who is the accepting physician at [facility]. Patient and his family at bedside have been updated about the transfer.
[2016-10-19] MEDS ORDERED: ATORVASTATIN CA80 M1 PO (20:24)
--- NOTE | 2016-10-19 20:29 | Patient Discharge Instructions ---
Discharge Instructions General Discharge Information You were seen/treated for: Acute right MCA territory ischemic stroke You had these procedures: Echo, carotid doppler, Transesophageal echocardiogram and Head CT. Watch for these problems: Worsening of neurological symptoms. Special Instructions: Please call and make a follow-up with your primary care physician within one week after discharge. Please continue to follow with your wire communications engineer and neurologist. Diet Continue normal diet: No Recommended Diet: Nothing by mouth. Activity Full Activity/No Limits: No Activity Self Limited: Yes Acute Coronary Syndrome Inclusion Criteria At DC or during hospital stay patient has or had the following: ACS DIAGNOSIS No Discharge Core Measures Meds if any: Prescribed or Continued at Discharge Meds if any: NOT Prescribed or Continued at Discharge Congestive Heart Failure Inclusion Criteria At DC or during hospital stay patient has or had the following: CHF DIAGNOSIS No Discharge Core Measures Meds if any: Prescribed or Continued at Discharge Meds if any: NOT Prescribed or Continued at Discharge Cerebrovascular accident Inclusion Criteria At DC or during hospital stay patient has or had the following: CVA/TIA Diagnosis Yes Discharge Core Measures Meds if any: Prescribed or Continued at Discharge Antithrombotic No Statin (required if LDL =>70) Yes Anticoagulant No Meds if any: NOT Prescribed or Continued at Discharge No Antithrombotic d/t Medical Contraindication No Anticoagulant d/t Medical Contraindication Venous thromboembolism Inclusion Criteria VTE Diagnosis No VTE Type NONE VTE Confirmed by (Test) NONE Discharge Core Measures - Per Current guidelines, there needs to be overlap - treatment for the first 5 days of Warfarin therapy. - If discharged on Warfarin prior to 5 days of - overlap therapy, the patient will need to be - assessed for post discharge needs including - *Post discharge parental anticoagulation - *Warfarin and/or parental anticoagulation education - *Follow up date to check INR post discharge At least 5 days overlap therapy as Inpatient No Meds if any: Prescribed or Continued at Discharge Note: Overlap Therapy is Warfarin and Anticoagulant Meds if any: NOT Prescribed or Continued at Discharge
[2016-10-19] MEDS ORDERED: PROTONIX40 M3 IV (20:39)
[2016-10-19] MEDS ORDERED: NOVOLIN R100 UNIT/1 SC (20:47)
--- NOTE | 2016-10-19 22:23 | NUR ---
PT ALERT AWARE OF TRANSFER. SON TRAVELING WITH PT. REPORT GIVEN TO [facility] D[facility]. 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 PT ALERT NIH 9. PT HAS LEFT SIDED DROOP, LEFT HAND WEAK BUT MOVING, ARM UNABLE TO RESIST GRAVITY. PT MOVING LEFT LEG. RIGHT SIDE NORMAL. PT C/O PINS AND NEEDLES TO LEFT ARM ONLY. NO HEADACHE. PT SKIN INTACT.
--- NOTE | 2016-10-19 22:52 | Event Note ---
Event Note Event Note: This is a 60 years old gentleman who was admitted 3 days ago after presenting with altered mental status and found to have ischemic stroke. This is a patient who has prosthetic aortic valves supposed to be on anticoagulation but the patient has not been taking warfarin as indicated. Patient was initially admitted to telemetry but after being observed that he has a significant stroke was transferred to intensive care unit for more close monitoring. He was started on heparin drip and his warfarin was held to reduce the risk of creating hemorrhagic stroke. On October 19 around 6 PM it was reported through neurological revealed that the patient had significantly deterioration of his neurological function with no ability to move his left upper and lower limb while during the morning the patient had 4 out of 5 power. We did a stat CAT scan which did not show evidence of hemorrhage but demonstrated a 4 mm midline shift. We spoke with neurosurgeon Dr. Paul and neurologist Dr. Garcia and we decided to transfer the patient to neuro ICU in [facility] for close monitoring of intracranial pressure and a possible thrombectomy and stenting to replace the ischemic stroke. The family was at the bedside and become confluent with the decision patient documentation prepared and transferred to [place] around 10:30 PM.
--- NOTE | 2016-11-16 19:14 | Admission Core Measures ---
TAWNY MARTIN,[facility] 11/16/16 1904: Pathway Pathway Ordered List all that apply: CVA Acute Coronary Syndrome Inclusion Criteria ACS Diagnosis No Inpatient Core Measures LDL Reminder: If No, please order W/I first 24hr of stay Congestive Heart Failure Inclusion Criteria CHF Diagnosis No Cerebrovascular accident Inclusion Criteria CVA/TIA Diagnosis Yes Inpatient Core Measures NIH Stroke Scale NIH Stroke Scale Response Value Level of Consciousness drowsy 1 LOC Questions answers both correctly 0 LOC Commands obeys both correctly 0 Best Gaze normal 0 Visual [place] partial hemianopia 1 Facial Paresis normal 0 Motor Arm - Left drift 1 Motor Arm - Right no drift 0 Motor Leg - Left no drift 0 Motor Leg - Right no drift 0 Limb Ataxia no ataxia 0 Sensory normal 0 Best Language no aphasia 0 Dysarthria mild/mod slurring words 1 Extinction and Inattention partial neglect 1 Total 5 Date Last Known Well 10/15/16 Time Last Known Well 0000 Neurological S/S of CVA Acute Confusion, Difficulty Speaking, Slurred Speech Symptom start date 10/16/16 Symptom start time 1300 Reason tPA not ordered: Medical Contraindication Bedside Swallow Eval Done Yes Result of evaluation Fail Bedside Swallow Eval Reminder: If BSE failed, place ST order Antithrombotic Reminder: Order Antithrombotic Medication by end of day 2 Days in Hospital CITLALI VALLADARES has been admitted for 3 days. Antithrombotic: Yes Antithrombotic Reminder: Document Reason Antithrombotic Not ordered by end of day 2 AFIB No Aflutter No AFIB/Flutter Reminder: If Present, add to problem list AFIB/Flutter Reminder: Order Anticoag Medication for pts with AFIB/Flutter Anticoagulant No No Anticoag d/t Medical Contraindication (Risk of hemorrhagic tfmn) Evidence of Atherosclerosis Yes Atherosclerosis Reminder: If Present, add to problem list LDL done W/I 24 hrs of admit Yes LDL Reminder: If No, please order W/I first 24hr of stay Currently on Statin: Yes Rehab Needs Assessed: Medical Eval for Rehab PT Consult Ordered: Yes PT Order Reminder: If No, please order Venous thromboembolism Inpatient Core Measures VTE Risk Factors: Acute medical illness, Age > 40, Obesity, Smoking [facility] prophylaxis d/t No contraindications No VTE Pharm Prophylaxis d/t Medical contraindication (Risk of hemorrhagic tfmn) Inclusion Criteria - Per Current guidelines, there needs to be overlap - treatment for the first 5 days of Warfarin therapy. - Parenteral Anticoagulation (IV or SC) needs to be - given along with Warfarin therapy. VTE Diagnosis No VTE Type NONE VTE Confirmed by (Test) NONE Problem List As ranked by this Provider includes Assessment & Plan 1. CVA (cerebral vascular accident) HOME MEDS Home Med List Aspirin (Ecotrin*) 81 MG TABLET.DR 1 TAB PO DAILY BLOOD THINNER (Reported) Atorvastatin Calcium 80 MG TABLET 80 MG PO 1700 HLD Insulin Glargine,Hum.rec.anlog (Lantus Solostar) 100 UNIT/ML (3 ML) INSULN.PEN 50 UNIT SC QPM DM (Reported) Insulin Lispro (Humalog) 100 UNIT/ML VIAL 20 U SC Q8 DM (Reported) Insulin Regular (Novolin R Inj) 1,000 UNITS/10 ML MER 0 UNITS SC Q6 dibetes Metoprolol Tartrate 50 MG TABLET 1 TAB PO BID HTN (Reported) Pantoprazole Sodium (Protonix) 40 MG TABLET.DR 40 MG IV BID GERD Ramipril 2.5 MG CAPSULE 1 CAP PO DAILY HTN (Reported) CAMMIE MARTIN, [facility] 11/16/16 2015: Acute Coronary Syndrome Inpatient Core Measures LDL Reminder: If No, please order W/I first 24hr of stay Cerebrovascular accident Inpatient Core Measures Bedside Swallow Eval Reminder: If BSE failed, place ST order Antithrombotic Reminder: Order Antithrombotic Medication by end of day 2 Antithrombotic Reminder: Document Reason Antithrombotic Not ordered by end of day 2 AFIB/Flutter Reminder: If Present, add to problem list AFIB/Flutter Reminder: Order Anticoag Medication for pts with AFIB/Flutter Atherosclerosis Reminder: If Present, add to problem list LDL Reminder: If No, please order W/I first 24hr of stay PT Order Reminder: If No, please order Venous thromboembolism Inclusion Criteria - Per Current guidelines, there needs to be overlap - treatment for the first 5 days of Warfarin therapy. - Parenteral Anticoagulation (IV or SC) needs to be - given along with Warfarin therapy. Attending Addendum Attending Brief Note This is an addendum to the CVA core measures to the H and P on admission dated Oct 16 2016.
== END 2016-10-19 22:46 | disposition short-term general hospital (02) | DRG 45 ==
LOC: ENRESERVTM → ENRESERVDT → EDBD 19:29 → ERH 19:29 → CRI 22:45 → 1NO 22:45 → ERHI 22:45 → CRI 22:45 → 1NO 10-17 00:14 → CRI 10-17 20:31
PROVIDERS: Internal Medicine Interventional Cardiology; Pediatrics; Preventive Medicine Public Health & General Preventive Medicine; Student in an Organized Health Care Education/Training Program; ADMIT Student in an Organized Health Care Education/Training Program
PROC: B246ZZ4 Ultrasonography of Right and Left Heart, Transesophageal (ICD-10-PCS; principal; 2016-10-19)
DX: I63.441 Cerebral infarction due to embolism of right cerebellar artery (principal); G93.6 Cerebral edema; G81.94 Hemiplegia, unspecified affecting left nondominant side; E78.5 Hyperlipidemia, unspecified; I10 Essential (primary) hypertension; R47.81 Slurred speech; K21.9 Gastro-esophageal reflux disease without esophagitis; I25.10 Atherosclerotic heart disease of native coronary artery without angina pectoris; E11.9 Type 2 diabetes mellitus without complications; Z79.01 Long term (current) use of anticoagulants; Z79.4 Long term (current) use of insulin; Z95.2 Presence of prosthetic heart valve; Z95.1 Presence of aortocoronary bypass graft
CPT/HCPCS: CCU; ERO; 36415; 80307; 81001; 82436; 93005; 93010; 93306; 93325; 97110-GO; 97112-GO; 97116-GO; 97162-GP; 97530-GO; 99291; G0480; J0131; J1644; J1815; J2720; J3490; J7042; Q2036